=== PATIENT | male | born 1960 | race Caucasian/White ===

== ENCOUNTER 2019-03-06 11:49 | Inpatient (IN) | payer OTHER, SELFPAY ==
--- NOTE | 2019-03-06 12:25 | RAD ---
EXAM: CHEST ONE VIEW HISTORY: Chest pain COMPARISON: 11/25/2014 FINDINGS: Cardiac silhouette is magnified by projection but does appear at the upper limits normal to borderlin e enlarged. The pulmonary vasculature is within normal limits. The lungs are clear. The osseous structures are intact. There is been no significant interval change from prior exam. IMPRESSION: 1. No acute cardiopulmonary process. 2. Cardiac silhouette appears enlarged but probably magnified by projection.
[2019-03-06] MEDS ORDERED: Diltiazem 125 MG/25 ML ONE (12:29)
[2019-03-06 12:42] LABS: #Basophils 0.1 thou/uL (0.0-0.2); #Eosinphils 0.1 thou/uL (0.0-0.7); #Lymphocytes 1.6 thou/uL (1.20-3.40); #Monocytes 0.6 thou/uL (0.11-0.59); #Neutrophils 5.8 thou/uL (1.40-6.50); %Basophils 0.9 % (0.0-1.0); %Eosinophils 0.8 % (0.0-10.0); %Lymphocytes 19.3 % (21.0-51.0); %Monocytes 7.5 % (0.0-10.0); %Neutrophils 71.5 % (42.0-75.0); Hemoglobin 14.9 g/dL (14.0-18.0); Mean Corpuscular HGB CONC 32.8 g/dL (32.0-36.0); Mean Corpuscular Hemoglobin 33.1 pg (27.0-31.0); Mean Platelet Volume 8.9 fL (7.4-10.4); Platelet Count 238 thou/uL (130-400); RBC Distribution Width 11.9 % (11.5-14.5); White Blood Cell (WBC) Count 8.1 thou/uL (4.8-10.8)
[2019-03-06 13:04] LABS: ALT (SGPT) 134 U/L (8-55); AST (SGOT) 109 U/L (5-34); Albumin 3.8 g/dL (3.5-5.0); Alkaline Phosphatase 125 U/L (40-110); Anion Gap 14 mmol/L (10-20); BUN (Urea Nitrogen) 25 mg/dL (8.4-25.7); Bilirubin, Total 1.2 mg/dL (0.2-1.2); CK (CPK) 111 U/L (30-200); Calc. Creatinine Clearance 0 mL/min (70-130); Carbon Dioxide 21 mmol/L (22-29); Chloride 105 mmol/L (98-107); Estimated GFR-MDRD 53; Globulin 2.6 g/dL (2.4-3.5); Glucose 113 mg/dL (70-105); Lipase 20 U/L (8-78); Magnesium 1.9 mg/dL (1.6-2.6); Potassium 4.2 mmol/L (3.5-5.1); Protein, Total 6.4 g/dL (6.0-8.3); Sodium 136 mmol/L (136-145)
[2019-03-06] MEDS ORDERED: Ondansetron ODT 4 MG TAB SL PRN (15:17)
[2019-03-06] MEDS ORDERED: Acetaminophen 325 MG TAB PO PRN (15:17)
[2019-03-06] MEDS ORDERED: Ondansetron PF 4 MG/2 ML Vial IVP PRN (15:17)
[2019-03-06] MEDS: Apixaban 5 MG TAB PO SCH (20:05)
--- NOTE | 2019-03-06 20:33 | HP ---
CHIEF COMPLAINT: Atrial fibrillation. HISTORY OF PRESENT ILLNESS: This patient is a 58-year-old male, who presented to the emergency department. The patient is followed by Dr. Santana Taveras. The patient was presenting there with some issues with his lower extremity varicose veins which are fairly severe. He had some inflammation and swelling of a right medial thigh of varicosity and was started on some Eliquis about 2 weeks ago. He went to follow up with Dr. Taveras at which time he was found to be in atrial fibrillation. He was already on Eliquis, so atenolol was started for better rate control. He followed up and continued to have some tachycardia, but was better, try to increase his atenolol to 75 mg a day. On followup today, the patient is feeling fatigued and short of breath and presented to the emergency department. He does report some orthopnea as well and generalized fatigue. Denies chest pain, significant weight gain or weight loss. He does have orthopnea. REVIEW OF SYSTEMS: All other systems reviewed. All pertinent positives and negatives noted in the history of present illness. PAST MEDICAL HISTORY: Notable for hypertension, hypothyroidism, GERD, anxiety. PAST SURGICAL HISTORY: Had a ligation injection of varicose veins, history of atrial fibrillation flutter and ventricular tachycardia ablation in 2003. FAMILY HISTORY: Mother had lung cancer. Father of his mesothelioma. Has a sister, who was diagnosed with atrial fibrillation one month ago. SOCIAL HISTORY: The patient is a nonsmoker, nondrug user. He drinks about three beers or Kailyn daily. He has had none since Saturday. ALLERGIES: NONE. CURRENT MEDICATIONS: 1. Atenolol 75 mg p.o. b.i.d. 2. Levothyroxine 100 mcg p.o. daily. 3. Xanax 0.5 mg b.i.d. p.r.n. 4. Eliquis 5 mg b.i.d. 5. Pantoprazole 40 mg daily p.r.n. PHYSICAL EXAMINATION: VITAL SIGNS: Temperature is 97.0, pulse 95, respirations 16, O2 saturation 97% on room air, BP is 126/98. GENERAL APPEARANCE: Age-appropriate male, in no distress. He is awake, alert, oriented, pleasant, cooperative. HEENT: PERRL. No OP lesions. NECK: Supple and symmetric without lymphadenopathy, JVD, or carotid bruits. HEART: Irregularly irregular with no murmurs, gallops, or rubs. LUNGS: Clear to auscultation bilaterally with good chest wall expansion and air exchange. ABDOMEN: Soft, nontender, and nondistended. Positive bowel sounds. No masses. No organomegaly. EXTREMITIES: No cyanosis, clubbing, or edema. There are extensive varicosities with a very large tortuous varicosity in the right medial thigh with some darkened skin haloed around several areas consistent with resolving inflammatory changes. PSYCH: Normal affect and behavior. NEURO: Cranial nerves are intact. Cognitively intact. No focal deficits. LABORATORY DATA: White count 8.1, hemoglobin 14.9, platelets 238. Sodium was 136, potassium 4.2, chloride 105, CO2 is 21, BUN 25, creatinine is 1.38, glucose 113, calcium 9.0, magnesium 1.9, AST is 109, ALT is 134, alkaline phosphatase 125. CK 111, troponin less than 0.01. Albumin 3.8, lipase 20. TSH is 0.1997. Chest x-ray shows slightly enlarged cardiac silhouette. It is unclear if this is a projection magnification. No other acute cardiopulmonary processes. EKG shows atrial fibrillation with rapid ventricular response at 124 beats per minute. IMPRESSION AND PLAN: 1. Atrial fibrillation with rapid ventricular response. This patient has some history of atrial fibrillation or flutter ablation in 2003. There was some mention of ventricular tachycardia at that time too, but it is completely unclear if that is accurate at this time. He has been on Eliquis since early in the onset of the atrial fibrillation. He has been on oral beta blockers and sounds like he was not getting adequate control of his symptoms. It is completely unclear if his current fatigue is related to the atrial fibrillation, some atrial fibrillation related congestive heart failure or the beta-cristina itself. In the emergency department, the patient received one dose of IV Cardizem and had good response and his heart rate has been well controlled since he was also given one dose of p.o. Cardizem prior to transfer to the floor. We will continue with the p.o. Cardizem and hold the beta blockers for now. Calcium channel blockers may not be a good long-term option for him given the severity of his varicose veins and the potential for significant peripheral edema. We will get the echocardiogram and consult Cardiology as well. 2. Possible congestive heart failure given his orthopnea and other complaints. We will check BNP and follow up with the echo results. 3. Elevated liver enzymes, possibly related to alcohol consumption. Could also be related to passive congestion from possible heart failure. We will need to determine the BNP and reassess the numbers subsequent. 4. Acute kidney injury, unclear etiology. The patient's last renal function test that we have in our system was from five years ago at which time he was essentially normal. Cannot aggressively hydrate until we have the BNP and echo, and know that this is not related to congestive heart failure. Does not appear to have prerenal indices. 5. Hypothyroidism. Continue with his usual dose of levothyroxine. Given the atrial fibrillation, we will go and check a free T4 as well. 6. History of anxiety disorder. We will continue with Xanax p.r.n. 7. History of gastroesophageal reflux disease. Continue pantoprazole. 8. Hypertension. Continue with Cardizem. We will continue to monitor his numbers. 9. Severe varicose veins. We will need outpatient followup. Job ID: [id number]
[2019-03-06] MEDS: ALPRAZolam 0.5 MG TAB PO PRN (21:26)
[2019-03-07 04:59] LABS: ALT (SGPT) 127 U/L (8-55); AST (SGOT) 94 U/L (5-34); Albumin 3.5 g/dL (3.5-5.0); Alkaline Phosphatase 112 U/L (40-110); Anion Gap 13 mmol/L (10-20); BUN (Urea Nitrogen) 19 mg/dL (8.4-25.7); Bilirubin, Total 0.9 mg/dL (0.2-1.2); Calc. Creatinine Clearance 79 mL/min (70-130); Calcium 8.4 mg/dL (7.8-10.44); Carbon Dioxide 20 mmol/L (22-29); Chloride 106 mmol/L (98-107); Estimated GFR-MDRD 65; Globulin 2.3 g/dL (2.4-3.5); Glucose 97 mg/dL (70-105); Potassium 4.2 mmol/L (3.5-5.1); Protein, Total 5.8 g/dL (6.0-8.3); Sodium 135 mmol/L (136-145)
[2019-03-07] MEDS: Levothyroxine Sodium 100 MCG TAB PO SCH (05:54)
[2019-03-07] MEDS: Apixaban 5 MG TAB PO SCH ×2 (08:31→20:17)
[2019-03-07] MEDS: Folic Acid 1 MG TAB PO SCH (08:31)
[2019-03-07] MEDS: Thiamine 100 MG TAB PO SCH (08:31)
[2019-03-07] MEDS ORDERED: Digoxin 0.5 MG/2 ML AMP SLOW IVP SCH (10:00)
--- NOTE | 2019-03-07 13:19 | CON ---
DATE OF CONSULTATION: PRIMARY CARE DOCTOR: Santana Taveras MD. PRIMARY PRESIDENT/[employer] EXPERIENCES: Cony Haque MD. REASON FOR CARDIOLOGY CONSULTATION: New onset atrial fibrillation with RVR. HISTORY OF PRESENT ILLNESS: Mr. Puri is a very present 58-year-old male with a significant history of hypertension, hypothyroidism, and anxiety. In 2003, the patient underwent aflutter and ventricular tachycardia ablation in [place]. The patient was transferred from [place] to [place], but since then the patient has been doing relatively well. On 2 weeks ago, the patient followed up with his primary care doctor for worsening of the varicose pain in the right lower extremities. The patient was found to have a thrombosis. The patient was prescribed Eliquis 5 mg twice a day. He has been on the medicine since then. The patient followed up with his primary care doctor last Saturday, and the patient was found to have atrial fibrillation with rapid ventricular response with heart rate up to 160. Atenolol 50 mg twice a day was prescribed, however, the patient started having more shortness of breath. The patient followed up with primary care doctor last Saturday and the patient was found to continue having heart rate in the 120s, and the patient's primary care doctor recommended the patient to admit to the ER for further evaluation and treatment. Besides the worsening of shortness of breath, he never has chest pain, heaviness, tightness, dizziness, lightheadedness, or any other cardiac complaints. According to the patient, he has not followed up with any cardiologists since 2003. PAST MEDICAL HISTORY: 1. Atrial fibrillation and flutter in 2003. 2. Hypertension. 3. Hypothyroidism. 4. GERD. 5. Anxiety. PAST SURGICAL HISTORY: 1. Bilateral varicose vein ablation by Dr. Madden about 10 years ago. 2. History of atrial fibrillation, aflutter, and ventricular tachycardia ablation in 2003 in [place]. FAMILY HISTORY: The patient's mother had a medical history of lung cancer. The patient's father due to complication of lung disease. The patient has one sister who was diagnosed with atrial fibrillation about 1 month ago. SOCIAL HISTORY: He is . He has 2 children, who are living well. He is an ex-smoker. He quit in 2003, however, he continued dipping, last dip was last Saturday. He drinks at least 2-3 beers at night with luis daily. He denied any illicit drug abuse. He does not do regular exercise, however, he works at [employer] and he does a physical work outside for the maintenance. He usually walks 3-4 miles a day without any cardiac complaints. He drinks 1 cup of coffee and [address] Pepper everyday. ALLERGIES: NO KNOWN DRUG ALLERGIES. CURRENT MEDICATIONS: 1. Xanax 0.5 mg twice a day as needed. 2. Levothyroxine 100 mcg once a day. 3. Protonix 40 mg once a day. 4. Atenolol 50 mg twice a day. 5. Eliquis 5 mg twice a day. REVIEW OF SYSTEMS: A 12-point review of systems negative unless otherwise mentioned in the HPI. PHYSICAL EXAMINATION: VITAL SIGNS: Blood pressure 117/66, temperature 97.1, pulse is 110 to 120s, respiratory rate 16, O2 saturation 95% with room air. GENERAL: The patient is alert and oriented x4, not in acute distress. HEAD: Normocephalic, atraumatic. EYES: Extraocular muscle movement intact. ENT AND MOUTH: Oral and nasal mucosa moist without lesion. NECK: Supple. Normal range of motion. No JVD. RESPIRATORY: Clear to auscultate bilaterally. No wheezing, rales, or rhonchi noted. CARDIOVASCULAR: Irregularly irregular. No S3 or S4. No significant murmur, hives, or thrill noted. 2+ pulses in the bilateral upper and lower extremities. No edema in the lower extremities. The patient's carotid pulses are present without bruit or thrill. ABDOMEN: Soft, nontender. No mass to palpitate. Bowel sounds are present. SKIN: Warm and dry. No erythema, rash, or lesion noted. MUSCULOSKELETAL: The patient is able to move all extremities without difficulty. The patient denied claudication. NEUROLOGIC: The patient is alert and oriented x4, nonfocal. PSYCHIATRIC: The patient's mood is very appropriate. LABORATORY DATA: WBC 8.1, hemoglobin 14.9, hematocrit 45.4, platelets 238. Sodium 135, potassium 4.2, BUN 19, creatinine 1.15, glucose 97, calcium 8.4. AST 94 from 109 yesterday, ALT 127 from 134 yesterday, alkaline phosphatase is 112. Troponin is negative. BNP is more than 1800. Albumin is 3.5. TSH 0.1997. Magnesium is 1.9. IMAGING STUDIES: The patient's chest x-ray shows no acute cardiopulmonary process. ASSESSMENT AND PLAN: 1. New onset atrial fibrillation with rapid ventricular response. The telemetry recordings have been showing the patient continued having atrial fibrillation with heart rates in the 110 to 120s with diltiazem 30 mg 4 times a day with Eliquis 5 mg twice a day. The patient's blood pressure is little bit hypotensive. We would like to go ahead to start digoxin loading dose with 0.125 mg once a day. If patient tolerates, we would like to start a beta cristina. We recommend the patient to be on the Eliquis for at least 6 weeks and recheck EKG and possible cardioversion or further atrial fibrillation workup if the patient continued having atrial fibrillation or aflutter. At this moment, the patient is asymptomatic. The patient denies shortness of breath. 2. Congestive heart failure extubation. The patient's BNP is more than 1800. The patient had an echocardiogram done today and the result is pending at this moment. Depends on the patient's echo results, we would like to adjust the patient's medication. The patient was strongly recommended to start EtOH cessation. 3. Hyertension. Blood pressure is mildly hypotensive. At this moment, the patient is asymptomatic. We would like to continue to monitor hypothyroidism which is managed by primary care doctor and thrombosis in the right varicose vein. At this moment, the patient is asymptomatic. The patient was recommended to follow up with Dr. Haque or any other vascular doctor who can manage the patient's varicose veins in the future. 4. EtOH abuse. The patient was strongly recommended to start EtOH cessation. Thank you very much for Cardiology Service to participate in the care of this patient. We will follow along the patient's care team and make further recommendations as appropriate. Job ID: [id number]
[2019-03-07] MEDS: Digoxin 0.5 MG/2 ML AMP SLOW IVP SCH ×2 (17:30→21:52)
--- NOTE | 2019-03-07 17:31 | PDOC.HOSPP ---
- Subjective Encounter Date: 03/07/19 Encounter Time: 17:25 Subjective: f/u for A-fib RVR tx with IV Cardizem with rate improvement. Hx of previous ? A- fib/SVT with ablation in the remote past. Currently no dyspnea. - Objective Vital Signs & Weight: Vital Signs (12 hours) Temp Pulse Resp BP Pulse Ox 03/07/19 15:14 97.7 F 91 16 128/81 96 03/07/19 11:37 97.2 F L 89 18 133/101 H 95 03/07/19 10:14 108 H 03/07/19 07:11 97.7 F 89 18 140/102 H 95 Weight Admit Weight 180 lb Weight 178 lb 6.4 oz I&O: 03/06/19 03/07/19 03/08/19 06:59 06:59 06:59 Intake Total 940 2 Output Total 1325 300 Balance -385 -298 Result Diagrams: 03/06/19 12:29 03/07/19 04:21 Additional Labs: Laboratory Tests 03/06/19 03/06/19 03/06/19 12:29 12:29 12:29 MCV 101.0 H BUN 25 Creatinine 1.38 H Magnesium 1.9 AST 109 H ALT 134 H Alkaline Phosphatase 125 H B-Natriuretic Peptide TSH 3rd Generation 0.1997 L 03/06/19 03/07/19 17:11 04:21 MCV BUN Creatinine Magnesium AST 94 H ALT 127 H Alkaline Phosphatase 112 H B-Natriuretic Peptide 1898.5 H TSH 3rd Generation Radiology Reviewed by me: Yes (Echo - EF 20-25%, mod-severe TR, mod MR) EKG Reviewed by me: Yes (Tele - A-fib in 80's) Hospitalist ROS - Medication Medications: Active Medications Generic Name Dose Route Start Last Admin Trade Name Freq PRN Reason Stop Dose Admin Alprazolam 0.5 mg 03/06/19 16:49 03/06/19 21:26 Xanax PO 0.5 mg BID PRN Administration Anxiety Apixaban 5 mg 03/06/19 21:00 03/07/19 08:31 Eliquis PO 5 mg BID JAZMYN Administration Diltiazem HCl 30 mg 03/06/19 17:00 03/07/19 12:01 Cardizem PO 30 mg ACHS JAZMYN Administration Folic Acid 1 mg 03/07/19 09:00 03/07/19 08:31 Folvite PO 1 mg DAILY JAZMYN Administration Levothyroxine Sodium 100 mcg 03/07/19 06:00 03/07/19 05:54 Synthroid PO 100 mcg 0600 JAZMYN Administration Pantoprazole Sodium 40 mg 03/07/19 09:00 03/07/19 08:31 Protonix PO 40 mg DAILY JAZMYN Administration Thiamine HCl 100 mg 03/07/19 09:00 03/07/19 08:31 Thiamine PO 100 mg DAILY JAZMYN Administration - Exam General Appearance: NAD, awake alert Eye: PERRL, anicteric sclera ENT: normocephalic atraumatic, no oropharyngeal lesions Neck: supple, symmetric, no JVD, no thyromegaly Heart: no gallops, no rubs, normal peripheral pulses, irregular Respiratory: CTAB, no wheezes, no rales, no ronchi, normal chest expansion Gastrointestinal: soft, non-tender, non-distended, normal bowel sounds, no palpable masses Extremities: no cyanosis, 1+ LE edema Skin: normal turgor Neurological: cranial nerve grossly intact, no new deficit Musculoskeletal: normal tone, normal strength Psychiatric: normal affect, A&O x 3 Hosp A/P (1) Atrial fibrillation with RVR Code(s): I48.91 - UNSPECIFIED ATRIAL FIBRILLATION Status: Acute Plan: Rate-controlled currently, continue Eliquis, consider ablation option, continue Diltiazem/Digoxin (2) Acute on chronic systolic (congestive) heart failure Code(s): I50.23 - ACUTE ON CHRONIC SYSTOLIC (CONGESTIVE) HEART FAILURE Status : Acute Plan: EF 20-25%, Cardiology consulted, may need heart catheterization to r/o underlying ischemia (3) Acute kidney injury superimposed on CKD Code(s): N17.9 - ACUTE KIDNEY FAILURE, UNSPECIFIED; N18.9 - CHRONIC KIDNEY DISEASE, UNSPECIFIED Status: Acute Plan: Improved, likely due to #1, avoid nephrotoxic meds and limit contrast (4) Hypothyroid Code(s): E03.9 - HYPOTHYROIDISM, UNSPECIFIED Status: Chronic Plan: Check Free T4 in am (5) Transaminitis Code(s): R74.0 - NONSPEC ELEV OF LEVELS OF TRANSAMNS & LACTIC ACID DEHYDRGNSE Status: Acute Plan: Likely due to #1, serial LFT trend (6) Anxiety Code(s): F41.9 - ANXIETY DISORDER, UNSPECIFIED Status: Chronic - Plan plan discussed w/ family, executive secretary social welfare, out of bed/ambulate, DVT proph w/SCDs Stable currently Continue Diltiazem Continue Digoxin Continue Eliquis Cardiology consult appreciated AM lab: CMP, FT4, B12/Folate
[2019-03-07] MEDS ORDERED: Carvedilol 3.125 MG TAB PO SCH (19:00)
[2019-03-07] MEDS: ALPRAZolam 0.5 MG TAB PO PRN (21:52)
--- NOTE | 2019-03-07 22:40 | CON ---
DATE OF CONSULTATION: 03/07/2019 INDICATION FOR CONSULTATION: A 58-year-old gentleman with a history of recent onset atrial fibrillation within the last 2 weeks possibly. He was seen in the past back in 2002 and 2004 for ablation of atrial fibrillation in [place]. He then was seen again several years later by Cardiology and had some type of stress test and possible echocardiogram and this was I believe over at [facility] at least by one of those physicians and has not returned for followup since that time. He has been unaware that he has atrial fibrillation. He continues to remain very active physically and has not had any other significant complaints. Even when he saw his physician, he saw him due to a large varicose vein that had been causing him some issues, but at that time he was actually asymptomatic when he was noted to be in atrial fibrillation with rapid ventricular response. He had an echocardiogram performed in 2003, which showed a left atrial dimension of 3.0, and ejection fraction at that time was 55% to 60%. When he came in today, the echocardiogram was again repeated. An echocardiogram today shows evidence of severe decrease in left ventricular systolic function. He actually underwent the ablation by Dr. Suarez, I believe due to a wide -complex tachycardia at that time apparently with atrial fibrillation. Also, he had a stress echocardiogram, which showed no evidence of ischemia at that time. According to the old records, he presented to the emergency room with a wide-complex tachycardia in 2003 and was seen at that time by Dr. Suarez. While he was in the emergency room, he did have a somewhat atypical pattern for the wide-complex tachycardia. He had a rate of 262 beats per minute. He was started on IV procainamide at that time. He continued to have wide-complex tachycardia. He then ultimately converted to a sinus rhythm. In retrospect, it was felt to be in atrial flutter with 1:1 conduction with a left-sided accessory pathway and he was then transferred to [place] where he underwent ablation of the atrial flutter, which most likely was a left-sided pathway and he underwent the ablation there. There was no mention of atrial fibrillation at that time. At this time, it appears that he has now developed atrial fibrillation. When he was seen for the superficial thrombosis of large varicose vein he was noted by the primary care physician to have a rapid and irregular heart rate. He has remained asymptomatic. He denied any chest pain or shortness of breath associated with that and has been still remaining very active. He had been placed on Eliquis 2 weeks ago due to the superficial thrombosis and remains on that medication. PAST MEDICAL HISTORY: Significant for greater saphenous vein ablation via Dr. Madden. He has also had removal of varicose veins. He also has a history of hypertension and gastroesophageal reflux disease. Ablation of atrial flutter. FAMILY HISTORY: Please refer to the notes already dictated by my nurse practitioner for the family history, social history, allergies and review of medications. REVIEW OF SYSTEMS: A 12-point review of systems unremarkable except what is noted in the history of present illness. PHYSICAL EXAMINATION: GENERAL: Reveals a well-developed, well-nourished gentleman, who is in no acute distress. He is very pleasant. He is alert. He is oriented. VITAL SIGNS: Blood pressure 128/81. He is afebrile. Heart rate is 91 and shows an irregular rhythm. The rate is under much better control at this time with the heart rates in the 80s to 100, O2 saturation 96%, respiratory rate 16. HEENT: Shows the head to be normocephalic and atraumatic. NECK: Carotid pulses are present. There were no bruits. CHEST: Actually clear to auscultation without rales, rhonchi, or wheezing. CARDIOVASCULAR: Reveals an irregularly regular rhythm. I do not hear any significant murmurs, heaves, thrills, bruits, or rubs. ABDOMEN: Soft, flat, and nontender. Positive bowel sounds are present. There is no organomegaly or masses noted. Femoral pulses are present. EXTREMITIES: No clubbing or cyanosis. He has a large thrombosed superficial varicose vein on the right medial thigh extending down to below the knee. He also has evidence of discoloration from previous varicose veins also in the lower extremities, more so on the right than the left. NEUROLOGIC: He is fully intact. There are no gross focal motor deficits noted. IMAGING: His echocardiogram showed an ejection fraction of 20% to 25%. The left atrium was only mildly dilated. He had moderate mitral valve regurgitation, otherwise relatively unremarkable echocardiogram. The left ventricular size appeared to be normal. LABORATORY DATA: Shows a WBC of 8.1, hemoglobin was 14.9, platelet count was 238,000. His sodium was 135, BUN was 19 with a creatinine of 1.15. Liver function was slightly abnormal with AST of 94, ALT was 127, alkaline phosphatase was 112. His BNP was elevated at 1898, which may be due to his tachycardia and possibly some diastolic dysfunction, which could not be determined with the patient in atrial fibrillation. His TSH was 0.1997. His chest x-ray, I believe is also unremarkable. There were no acute new findings noted. IMPRESSION: 1. Atrial fibrillation with rapid ventricular response. This may be the etiology of the cardiomyopathy, which is a new finding. Previously he had a normal ejection fraction. He has remained asymptomatic. We will certainly control the heart rate. Since he is on Eliquis for about 2 weeks, we will consider starting him on medication for medical cardioversion of the atrial fibrillation. If he does not convert over the weekend, then I would suggest possibly he have a transesophageal echocardiogram on Saturday and then undergo electrocardioversion of the atrial fibrillation. We will discuss with him whether or not he can financially afford some of the medications that will hopefully be antiarrhythmic medications for this gentleman. He may otherwise need to undergo ablation of the atrial fibrillation. 2. History of superficial thrombosis of varicose veins. This is relatively stable, somewhat tender, but would agree with the present management. Should he continue to have problems in the future, he could undergo a stab phlebectomy of the large thrombosed varicose veins. Also please note that he has increased alcohol use. He will need to curtail this, especially in view of his atrial fibrillation. This may be some of the etiology of the atrial fibrillation. He did not have any evidence of ischemia and at some point time will need to undergo stress testing also to rule out evidence of underlying ischemia. He has not had one done for many years. 3. History of hypertension, which is under good control at this time. He has been placed on diltiazem and we can continue this medication at this time. We will certainly consider adding other medications to convert him from his atrial fibrillation. 4.He also has a history of hypothyroidism and is on medication. We will leave this up to the discretion of the primary care physician's. He did have some evidence of acute renal insufficiency, which most likely is associated with a decrease in his left ventricular systolic function and this is actually improved since being in the hospital. On admission, his creatinine is 1.38, is now back to normal at 1.15. Job ID: [id number] [facility]
[2019-03-08 05:45] LABS: ALT (SGPT) 110 U/L (8-55); AST (SGOT) 68 U/L (5-34); Albumin 3.4 g/dL (3.5-5.0); Alkaline Phosphatase 101 U/L (40-110); Anion Gap 12 mmol/L (10-20); BUN (Urea Nitrogen) 15 mg/dL (8.4-25.7); Bilirubin, Total 0.8 mg/dL (0.2-1.2); Calc. Creatinine Clearance 84 mL/min (70-130); Calcium 8.5 mg/dL (7.8-10.44); Carbon Dioxide 23 mmol/L (22-29); Chloride 107 mmol/L (98-107); Estimated GFR-MDRD 72; Globulin 2.3 g/dL (2.4-3.5); Glucose 99 mg/dL (70-105); Potassium 3.8 mmol/L (3.5-5.1); Protein, Total 5.7 g/dL (6.0-8.3); Sodium 138 mmol/L (136-145)
[2019-03-08] MEDS: Levothyroxine Sodium 100 MCG TAB PO SCH (05:50)
[2019-03-08 05:59] LABS: Free T4 (Free Thyroxine) 1.15 ng/dL (0.70-1.48)
[2019-03-08] MEDS: Carvedilol 3.125 MG TAB PO SCH ×2 (07:25→16:33)
[2019-03-08] MEDS: Thiamine 100 MG TAB PO SCH (08:11)
[2019-03-08] MEDS: Apixaban 5 MG TAB PO SCH ×2 (08:11→20:20)
[2019-03-08] MEDS: Folic Acid 1 MG TAB PO SCH (08:11)
--- NOTE | 2019-03-08 08:56 | PDOC.CPN ---
- Subjective Date: 03/08/19 Time: 09:00 Interval history: The pt seen and examined. No overnight events. No cardiac complaints. - Objective Allergies/Adverse Reactions: Allergies Allergy/AdvReac Type Severity Reaction Status Date / Time No Known Allergies Allergy Verified 03/06/19 16:09 Visit Medications: Current Medications Alprazolam (Xanax) 0.5 mg PO BID PRN PRN Reason: Anxiety Last Admin: 03/07/19 21:52 Dose: 0.5 mg Apixaban (Eliquis) 5 mg PO BID [facility] Last Admin: 03/08/19 08:11 Dose: 5 mg Carvedilol (Coreg) 3.125 mg PO BID-WM [facility] Last Admin: 03/08/19 07:25 Dose: 3.125 mg Digoxin (Lanoxin) 0.125 mg PO DAILY [facility] Last Admin: 03/08/19 08:11 Dose: 0.125 mg Diltiazem HCl (Cardizem) 30 mg PO ACHS [facility] Last Admin: 03/08/19 07:25 Dose: 30 mg Folic Acid (Folvite) 1 mg PO DAILY [facility] Last Admin: 03/08/19 08:11 Dose: 1 mg Levothyroxine Sodium (Synthroid) 100 mcg PO 0600 [facility] Last Admin: 03/08/19 05:50 Dose: 100 mcg Pantoprazole Sodium (Protonix) 40 mg PO DAILY [facility] Last Admin: 03/08/19 08:11 Dose: 40 mg Sodium Chloride (Flush - Normal Saline) 10 ml IVF Q12HR [facility] Last Admin: 03/08/19 08:12 Dose: 10 ml Sodium Chloride (Flush - Normal Saline) 10 ml IVF PRN PRN PRN Reason: Saline Flush Thiamine HCl (Thiamine) 100 mg PO DAILY [facility] Last Admin: 03/08/19 08:11 Dose: 100 mg Vital Signs & Weight: Vital Signs Temp Pulse Resp BP Pulse Ox 03/08/19 07:40 97.3 F L 97 20 135/93 H 95 03/08/19 04:00 97.6 F 83 15 125/95 H 94 L 03/07/19 23:32 98.0 F 69 16 126/81 94 L 03/07/19 21:52 78 Admit Weight 180 lb Weight 174 lb 8 oz - Physical Exam General: alert & oriented x3 HEENT: mucus membranes moist Neck: supple neck Cardiac: irregularly regular Lungs: clear to auscultation Extremities: no edema Musculoskeletal: normal range of motion - Labs Result Diagrams: 03/06/19 12:29 03/08/19 04:45 Troponin/CKMB Troponin I Less than 0.010 ng/mL (< 0.028) 03/06/19 12:29 - Telemetry Supraventricular conduction: atrial fibrillation - Assessment/Plan Assessment/Plan: 1. New onset Afib with RVR - stable with Coreg 3.125mg BID, Digoxin, and Diltiazem which may stop eventually for EF 20-25%; On Eliquis since 02/23/2019; Plan for CALE on Saturday by Dr Haque if he cont afib 2. Acute on chronic Systolic HF with EF 20-25% - 3. HTN - stable 4. Anxiety 5. Hypothyroidism 6. ETOH and tobacco abuse - the pt is willing to start ETOH and smoking cessation MAR reviewed * Plan for CALE on Saturday by Dr Haque if he does not convert to NSR. * The coupon of Eliquis is given to the pt today Pt. seen and eval. by me. I agree with the A/P by the PHOTOGRAPHER FINISH. He remains in Afib. but the rate is under good control. I will add Flecaininde and if he does not convert then plan for CALE/Cardioversion. It is likely that the decr. EF is due to the tachycardia assoc. with the Afib. The EF should improve if this is the case. He did not have any EKG changes that would indicate ischemia with the rapid rate.
[2019-03-08] MEDS ORDERED: Digoxin 0.125 MG TAB PO SCH (09:00)
[2019-03-08] MEDS ORDERED: Flecainide 50 MG TAB PO SCH (10:00)
--- NOTE | 2019-03-08 14:30 | PDOC.HOSPP ---
- Subjective Encounter Date: 03/08/19 Encounter Time: 14:25 Subjective: f/u for A-fib RVR and cardiomyopathy with EF 25%. Receiving Flecainide/Diltiazem /Digoxin/Coreg and Eliquis. Plan for CALE with CV in am. - Objective Vital Signs & Weight: Vital Signs (12 hours) Temp Pulse Resp BP Pulse Ox 03/08/19 11:06 97.4 F L 75 20 130/89 95 03/08/19 07:40 97.3 F L 97 20 135/93 H 95 03/08/19 04:00 97.6 F 83 15 125/95 H 94 L Weight Admit Weight 180 lb Weight 174 lb 8 oz I&O: 03/07/19 03/08/19 03/09/19 06:59 06:59 06:59 Intake Total 940 1584 Output Total 1325 0795 Balance -385 -5992 Result Diagrams: 03/06/19 12:29 03/08/19 04:45 Additional Labs: Laboratory Tests 03/06/19 03/06/19 03/06/19 12:29 12:29 12:29 MCV 101.0 H BUN 25 Creatinine 1.38 H Magnesium 1.9 AST 109 H ALT 134 H Alkaline Phosphatase 125 H B-Natriuretic Peptide Vitamin B12 Folate Free T4 Free T3 TSH 3rd Generation 0.1997 L 03/06/19 03/07/19 03/08/19 17:11 04:21 04:45 MCV BUN Creatinine Magnesium AST 94 H ALT 127 H Alkaline Phosphatase 112 H B-Natriuretic Peptide 1898.5 H Vitamin B12 Folate Free T4 1.15 Free T3 2.25 TSH 3rd Generation 03/08/19 03/08/19 03/08/19 04:45 04:45 04:45 MCV BUN Creatinine Magnesium AST 68 H ALT 110 H Alkaline Phosphatase 101 B-Natriuretic Peptide Vitamin B12 435 Folate 14.00 Free T4 Free T3 TSH 3rd Generation EKG Reviewed by me: Yes (Tele - A-fib 70's) Hospitalist ROS - Medication Medications: Active Medications Generic Name Dose Route Start Last Admin Trade Name Freq PRN Reason Stop Dose Admin Alprazolam 0.5 mg 03/06/19 16:49 03/07/19 21:52 Xanax PO 0.5 mg BID PRN Administration Anxiety Apixaban 5 mg 03/06/19 21:00 03/08/19 08:11 Eliquis PO 5 mg BID [facility] Administration Carvedilol 3.125 mg 03/08/19 08:00 03/08/19 07:25 Coreg PO 3.125 mg BID-WM [facility] Administration Diltiazem HCl 30 mg 03/06/19 17:00 03/08/19 10:53 Cardizem PO 30 mg ACHS [facility] Administration Folic Acid 1 mg 03/07/19 09:00 03/08/19 08:11 Folvite PO 1 mg DAILY [facility] Administration Levothyroxine Sodium 100 mcg 03/07/19 06:00 03/08/19 05:50 Synthroid PO 100 mcg 0600 [facility] Administration Pantoprazole Sodium 40 mg 03/07/19 09:00 03/08/19 08:11 Protonix PO 40 mg DAILY [facility] Administration Sodium Chloride 10 ml 03/08/19 09:00 03/08/19 08:12 Flush - Normal Saline IVF 10 ml Q12HR [facility] Administration Thiamine HCl 100 mg 03/07/19 09:00 03/08/19 08:11 Thiamine PO 100 mg DAILY [facility] Administration - Exam General Appearance: NAD, awake alert Eye: PERRL, anicteric sclera ENT: normocephalic atraumatic, no oropharyngeal lesions Neck: supple, symmetric, no JVD, no thyromegaly, no lymphadenopathy Heart: no gallops, no rubs, normal peripheral pulses, irregular Respiratory: CTAB, no wheezes, no rales, no ronchi, normal chest expansion Gastrointestinal: soft, non-tender, non-distended, normal bowel sounds, no palpable masses Extremities: no cyanosis, no clubbing, no edema Skin: normal turgor, no lesions Neurological: cranial nerve grossly intact, no new deficit Musculoskeletal: normal tone, normal strength Psychiatric: normal affect, A&O x 3 Hosp A/P (1) Atrial fibrillation with RVR Code(s): I48.91 - UNSPECIFIED ATRIAL FIBRILLATION Status: Acute Plan: Rate-controlled currently, plan for CALE/CV in am, continue Eliquis (2) Acute on chronic systolic (congestive) heart failure Code(s): I50.23 - ACUTE ON CHRONIC SYSTOLIC (CONGESTIVE) HEART FAILURE Status : Acute Plan: Likely due to #1, see above (3) Acute kidney injury superimposed on CKD Code(s): N17.9 - ACUTE KIDNEY FAILURE, UNSPECIFIED; N18.9 - CHRONIC KIDNEY DISEASE, UNSPECIFIED Status: Acute Plan: Improved, avoid nephrotoxic meds and limit contrast exposure (4) Hypothyroid Code(s): E03.9 - HYPOTHYROIDISM, UNSPECIFIED Status: Chronic Plan: Stable, continue Levothyroxine 100mcg daily (5) Transaminitis Code(s): R74.0 - NONSPEC ELEV OF LEVELS OF TRANSAMNS & LACTIC ACID DEHYDRGNSE Status: Acute Plan: Likely due to ETOH use and CHF with hepatic congestion (6) Anxiety Code(s): F41.9 - ANXIETY DISORDER, UNSPECIFIED Status: Chronic - Plan old records reviewed/req, plan discussed w/ family, out of bed/ambulate, DVT proph w/SCDs Stable currently Continue Diltiazem Continue Digoxin Continue Eliquis Flecainide 50mg BID Cardiology consult appreciated Plan for CALE/CV 03/09/19
[2019-03-08] MEDS ORDERED: Iopamidol-370 76% 500 ML 1 ML ONE (16:09)
[2019-03-08] MEDS: Flecainide 50 MG TAB PO SCH (20:21)
[2019-03-08] MEDS ORDERED: Acetaminophen 325 MG TAB PO PRN (21:21)
[2019-03-08] MEDS: ALPRAZolam 0.5 MG TAB PO PRN (22:26)
[2019-03-08] MEDS ORDERED: traMADol HCl 50 MG TAB PO PRN (23:37)
--- NOTE | 2019-03-08 23:41 | PDOC.EVN ---
Event Note - Event Note Event Note: patient c/o of LLQ pain for several hours with no relief with tylenol. Initial concern for constipation but this improved some after prune juice today. However , LLQ pain is not improving after BM. History of diverticulitis. CT abdomen with contrast ordered, also Senokot S, tramadol prn. Will continue to monitor.
[2019-03-09] MEDS: Levothyroxine Sodium 100 MCG TAB PO SCH (05:46)
[2019-03-09] MEDS: Folic Acid 1 MG TAB PO SCH (07:29)
[2019-03-09] MEDS: Apixaban 5 MG TAB PO SCH ×2 (07:29→20:24)
[2019-03-09] MEDS: Flecainide 50 MG TAB PO SCH (07:30)
[2019-03-09] MEDS: Senokot S 8.6-50 MG TAB PO SCH ×2 (07:30→20:24)
[2019-03-09] MEDS: Thiamine 100 MG TAB PO SCH (07:30)
[2019-03-09] MEDS: Carvedilol 3.125 MG TAB PO SCH ×2 (07:30→16:25)
--- NOTE | 2019-03-09 08:59 | CT ---
PRELIMINARY REPORT/[facility]/EMERGENCY AFTER HOURS PROCEDURE: This report was discussed with juan mayfield RN by Ethan Marie on Mar 09, 2019 02:42:00 [employer]. Addendum electronically signed by Ethan Marie on March 09, 2019 2:42:21 AM [employer] EXAM: CT Abdomen and Pelvis with Intravenous Contrast CLINICAL HISTORY: LLQ PAIN, HX. DIVERTICULITIS TECHNIQUE: Axial computed tomography images of the abdomen and pelvis with intravenous contrast. Coronal and sa gittal reformatted images are provided. CONTRAST: With; ISOVUE 370,100mL COMPARISON: None provided. FINDINGS: LUNG BASES: Small layering right pleural effusion. Right basilar atelectasis. The heart is normal siz e. No pericardial effusion. LIVER: Unremarkable. GALLBLADDER AND BILE DUCTS: Unremarkable. No calcified stone. No ductal dilation. PANCREAS: Unremarkable. SPLEEN: Unremarkable. ADRENAL GLANDS: 2.8 cm right adrenal nodule with density of 8 HU consistent with benign lipid rich ad enoma. The left adrenal gland is normal. KIDNEYS, URETERS, AND BLADDER: Arterial occlusion within the posterior branches of the left renal art joelle with associated posterior left kidney hypo-enhancement consistent with renal infarct. No renal st ones or hydronephrosis. The right kidney is within normal limits. Ureters follow a normal course. Nor mal appearance of the bladder. STOMACH AND BOWEL: Colonic diverticulosis. No evidence of acute diverticulitis. No evidence of rip l obstruction. APPENDIX: No CT evidence for appendicitis. PERITONEUM: No free fluid. No free air. LYMPH NODES: No lymphadenopathy. REPRODUCTIVE: Unremarkable as visualized. VASCULATURE: No aortic aneurysm. Atherosclerotic cardiovascular disease. BONES: No fracture or suspicious osseous abnormality. ABDOMINAL WALL AND SOFT TISSUES: Unremarkable. IMPRESSION: 1. 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 This most commonly associated with embolic phenomenon. 2. Small right pleural effusion with associated right basilar atelectasis. 3. Right benign lipid rich adrenal adenoma. Correlate for metabolic function. 4. Colonic diverticulosis without evidence of acute diverticulitis. ELECTRONICALLY SIGNED BY: Ang Marinelli M.D. Mar 09, 2019 2:38:53 AM [employer] This report is intended for review by the ordering physician only, in accordance of law. If you recei ve this report in error, please call [facility] at [phone]. FINAL REPORT EMERGENT AFTER HOURS CT ABDOMEN AND PELVIS WITH IV CONTRAST: HISTORY: Left lower quadrant abdominal pain. History of diverticulitis. COMPARISON: None. IMPRESSION: 1. Small right pleural effusion with atelectasis at the right lung base. Minimal atelectasis presen t at left lung base. 2. Right adrenal hypodense lesion measuring 2.6 cm which does demonstrate an attenuation coefficient on this exam most suggestive of an adrenal adenoma. 3. Absent enhancement involving the posterior aspect of the left kidney as well as involving the sup erior pole suggesting renal infarction. The right kidney demonstrates normal enhancement for phase o f imaging. 4. Colonic diverticulosis. 5. No CT evidence of appendicitis. 6. Loops of small bowel are normal in caliber. 7. No free fluid or free intraperitoneal gas is seen in the abdomen or pelvis. 8. Findings are in agreement with the preliminary report by [facility]. POS: OFF
[2019-03-09] MEDS ORDERED: Midazolam HCl 2 mg/2 ml Vial ONE (09:21)
[2019-03-09] MEDS ORDERED: PROPOFOL 200 MG/20 ML VIAL ONE (10:03)
[2019-03-09] MEDS ORDERED: Lidocaine 1% PF 5 ML VIAL ONE (10:03)
--- NOTE | 2019-03-09 10:25 | PDOC.CPN ---
- Subjective Date: 03/09/19 Time: 10:00 Interval history: Yest. pm after dinner he devoped left flank pain, CT was done and it appears that he embolized to the post left renal artery.He denied any cardiac complaints. - Review of Systems General: reports: fever/chills, night sweats Respiratory: reports: congestion, shortness of breath Cardiovascular: reports: chest pain, edema Gastrointestinal: reports: nausea, vomiting, diarrhea, abd pain (post back pain in the flank area on the left. This has resolved.) Musculoskeletal: reports: pain, tenderness Neurological: reports: syncope, seizure - Objective Allergies/Adverse Reactions: Allergies Allergy/AdvReac Type Severity Reaction Status Date / Time No Known Allergies Allergy Verified 03/06/19 16:09 Visit Medications: Current Medications Acetaminophen (Tylenol) 650 mg PO Q6H PRN PRN Reason: Headache/Fever or Pain Last Admin: 03/08/19 22:26 Dose: 650 mg Alprazolam (Xanax) 0.5 mg PO BID PRN PRN Reason: Anxiety Last Admin: 03/08/19 22:26 Dose: 0.5 mg Apixaban (Eliquis) 5 mg PO BID [facility] Last Admin: 03/09/19 07:29 Dose: 5 mg Carvedilol (Coreg) 3.125 mg PO BID-WM [facility] Last Admin: 03/09/19 07:30 Dose: 3.125 mg Diltiazem HCl (Cardizem) 30 mg PO ACHS [facility] Last Admin: 03/09/19 07:30 Dose: 30 mg Flecainide Acetate (Tambocor) 50 mg PO Q12HR [facility] Last Admin: 03/09/19 07:30 Dose: 50 mg Folic Acid (Folvite) 1 mg PO DAILY [facility] Last Admin: 03/09/19 07:29 Dose: 1 mg Levothyroxine Sodium (Synthroid) 100 mcg PO 0600 [facility] Last Admin: 03/09/19 05:46 Dose: 100 mcg Pantoprazole Sodium (Protonix) 40 mg PO DAILY [facility] Last Admin: 03/09/19 07:29 Dose: 40 mg Senna/Docusate Sodium (Senokot S) 1 tab PO BID [facility] Last Admin: 03/09/19 07:30 Dose: Not Given Sodium Chloride (Flush - Normal Saline) 10 ml IVF Q12HR [facility] Last Admin: 03/09/19 07:30 Dose: 10 ml Sodium Chloride (Flush - Normal Saline) 10 ml IVF PRN PRN PRN Reason: Saline Flush Thiamine HCl (Thiamine) 100 mg PO DAILY [facility] Last Admin: 03/09/19 07:30 Dose: 100 mg Tramadol HCl (Ultram) 50 mg PO Q4H PRN PRN Reason: Moderate Pain (4-6) Vital Signs & Weight: Vital Signs Temp Pulse Resp BP Pulse Ox 03/09/19 07:57 98 F 69 16 175/104 H 97 03/09/19 04:13 98.1 F 117 H 15 142/107 H 95 Admit Weight 180 lb Weight 174 lb 14.4 oz - CHADS-VASc Congestive heart failure: 1 Risk Score: 1 - Quality Measures Condition: Atrial Fibrillation/Flutter (hx or current) (unsuccessful cardioversion this AM.) CV meds: ASA: Yes - Physical Exam HEENT: normocephaly Neck: no JVD/HJR, no masses Cardiac: irregularly regular Lungs: clear to auscultation, no wheeze, rales, rhonchi, no rhonchi Neuro: grossly intact Abdomen: unremarkable (mild flank tenderness) Extremities: no cyanosis, no clubbing, no edema Musculoskeletal: normal range of motion - Labs Result Diagrams: 03/06/19 12:29 03/08/19 04:45 Troponin/CKMB Troponin I Less than 0.010 ng/mL (< 0.028) 03/06/19 12:29 - Telemetry Supraventricular conduction: atrial fibrillation - Assessment/Plan Assessment/Plan: 1. New onset Afib with RVR - stable with Coreg 3.125mg BID, Digoxin, and started on Flecainide last pm. On Eliquis since 02/23/2019; Plan for CALE / cardioversion this AM. History of atrial flutter ablation in the past and possible V-tach ablation, he is unclear about this. ( Dr. Suarez - 2004) 2. Acute on chronic Systolic HF with EF 20-25% - 3. HTN - stable 4. Anxiety 5. Hypothyroidism 6. ETOH and tobacco abuse - the pt is willing to start ETOH and smoking cessation 7. 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 MAR reviewed Cardioversion was unsuccessful after 3 attempts. I will ask for EP to consult.
--- NOTE | 2019-03-09 12:37 | PDOC.HOSPP ---
- Subjective Encounter Date: 03/09/19 Encounter Time: 12:35 Subjective: f/u for A-fib RVR on Diltiazem/Flecainide/Coreg/Eliquis s/p unsuccessful CV x 3 this am. LLQ abd pain overnight with CT imaging showing L renal infarct. - Objective Vital Signs & Weight: Vital Signs (12 hours) Temp Pulse Resp BP Pulse Ox 03/09/19 12:14 97.8 F 85 16 134/93 H 95 03/09/19 11:47 97.5 F L 78 18 138/101 H 97 03/09/19 07:57 98 F 69 16 175/104 H 97 03/09/19 04:13 98.1 F 117 H 15 142/107 H 95 Weight Admit Weight 180 lb Weight 174 lb 14.4 oz I&O: 03/08/19 03/09/19 03/10/19 06:59 06:59 06:59 Intake Total 1584 2100 Output Total 3525 1250 Balance -1941 850 Result Diagrams: 03/06/19 12:29 03/08/19 04:45 Additional Labs: Laboratory Tests 03/06/19 03/06/19 03/06/19 12:29 12:29 12:29 MCV 101.0 H BUN 25 Creatinine 1.38 H Magnesium 1.9 AST 109 H ALT 134 H Alkaline Phosphatase 125 H B-Natriuretic Peptide Vitamin B12 Folate Free T4 Free T3 TSH 3rd Generation 0.1997 L 03/06/19 03/07/19 03/08/19 17:11 04:21 04:45 MCV BUN Creatinine Magnesium AST 94 H ALT 127 H Alkaline Phosphatase 112 H B-Natriuretic Peptide 1898.5 H Vitamin B12 Folate Free T4 1.15 Free T3 2.25 TSH 3rd Generation 03/08/19 03/08/19 03/08/19 04:45 04:45 04:45 MCV BUN Creatinine Magnesium AST 68 H ALT 110 H Alkaline Phosphatase 101 B-Natriuretic Peptide Vitamin B12 435 Folate 14.00 Free T4 Free T3 TSH 3rd Generation Radiology Reviewed by me: Yes (CT abd - L post renal artery infarct/thrombus) EKG Reviewed by me: Yes (Tele - A-fib in 80's) Hospitalist ROS - Medication Medications: Active Medications Generic Name Dose Route Start Last Admin Trade Name Freq PRN Reason Stop Dose Admin Acetaminophen 650 mg 03/08/19 21:21 03/08/19 22:26 Tylenol PO 650 mg Q6H PRN Administration Headache/Fever or Pain Alprazolam 0.5 mg 03/06/19 16:49 03/08/19 22:26 Xanax PO 0.5 mg BID PRN Administration Anxiety Apixaban 5 mg 03/06/19 21:00 03/09/19 07:29 Eliquis PO 5 mg BID [facility] Administration Carvedilol 3.125 mg 03/08/19 08:00 03/09/19 07:30 Coreg PO 3.125 mg BID-WM [facility] Administration Diltiazem HCl 30 mg 03/06/19 17:00 03/09/19 11:54 Cardizem PO 30 mg ACHS [facility] Administration Folic Acid 1 mg 03/07/19 09:00 03/09/19 07:29 Folvite PO 1 mg DAILY [facility] Administration Levothyroxine Sodium 100 mcg 03/07/19 06:00 03/09/19 05:46 Synthroid PO 100 mcg 0600 [facility] Administration Pantoprazole Sodium 40 mg 03/07/19 09:00 03/09/19 07:29 Protonix PO 40 mg DAILY [facility] Administration Senna/Docusate Sodium 1 tab 03/09/19 09:00 03/09/19 07:30 Senokot S PO Not Given BID [facility] Sodium Chloride 10 ml 03/08/19 09:00 03/09/19 07:30 Flush - Normal Saline IVF 10 ml Q12HR [facility] Administration Thiamine HCl 100 mg 03/07/19 09:00 03/09/19 07:30 Thiamine PO 100 mg DAILY [facility] Administration - Exam General Appearance: NAD, awake alert Eye: PERRL, anicteric sclera ENT: normocephalic atraumatic, no oropharyngeal lesions Neck: supple, symmetric, no JVD, no thyromegaly Heart: no murmur, no gallops, no rubs, normal peripheral pulses, irregular Respiratory: CTAB, no wheezes, no rales, no ronchi, normal chest expansion Gastrointestinal: soft, non-tender, non-distended, normal bowel sounds, no palpable masses Extremities: no cyanosis, no clubbing Skin: normal turgor, no lesions Neurological: cranial nerve grossly intact, no new deficit Musculoskeletal: normal tone, normal strength Psychiatric: normal affect, A&O x 3 Hosp A/P (1) Atrial fibrillation with RVR Code(s): I48.91 - UNSPECIFIED ATRIAL FIBRILLATION Status: Acute Plan: Unsuccessful CV x 3, EP consult, continue rate-control strategy, Eliquis 5mg BID (2) Renal infarct Code(s): N28.0 - ISCHEMIA AND INFARCTION OF KIDNEY Status: Acute Plan: L post renal infarct, continue Eliquis, Urology consulted, pain control (3) Cardiomyopathy Code(s): I42.9 - CARDIOMYOPATHY, UNSPECIFIED Status: Acute Plan: EF 25%, continue med mgmt, likely due to A-fib (4) Acute kidney injury superimposed on CKD Code(s): N17.9 - ACUTE KIDNEY FAILURE, UNSPECIFIED; N18.9 - CHRONIC KIDNEY DISEASE, UNSPECIFIED Status: Acute Plan: Resolved, serial creatinine (5) Hypothyroid Code(s): E03.9 - HYPOTHYROIDISM, UNSPECIFIED Status: Chronic (6) Transaminitis Code(s): R74.0 - NONSPEC ELEV OF LEVELS OF TRANSAMNS & LACTIC ACID DEHYDRGNSE Status: Acute (7) Anxiety Code(s): F41.9 - ANXIETY DISORDER, UNSPECIFIED Status: Chronic - Plan old records reviewed/req, plan discussed w/ family, social media marketing analyst, out of bed/ ambulate, DVT proph w/SCDs Stable currently Continue Diltiazem Continue Coreg Continue Eliquis Flecainide 50mg BID Cardiology consult appreciated Urology consult pending AM lab: CMP, CBC
[2019-03-09] MEDS: ALPRAZolam 0.5 MG TAB PO PRN (20:24)
--- NOTE | 2019-03-09 23:26 | CON ---
DATE OF CONSULTATION: 03/09/2019 CONSULTING PHYSICIAN: Cony Haque MD REASON FOR CONSULTATION: Renal embolism with infarct. HISTORY OF PRESENT ILLNESS: Mr. Puri is a 58-year-old white male, who initially presented to the emergency department with history of flank pain along with tachycardia and generalized malaise. He was diagnosed with atrial fibrillation previously sometime in 2002 or 2004, and had undergone ablations at that time. He was unaware that he had currently been back in atrial fibrillation and was quite active. He had some large varicose veins that were noted and was being worked up for atrial fibrillation again. During this time, he was found to have significant amounts of tachycardia. He still has tachycardia and atrial fibrillation along with superficial thrombosis of a large varicose vein in his legs. He began having flank pain after being admitted to the hospital for consideration for a CALE and attempts at cardioversion. The patient is already on Eliquis. The patient had a CT scan secondary to having the flank pain on March 08, which demonstrated a posterior left renal infarct with likely thrombotic occlusion of the posterior branch of the left renal artery. There was also noted to be a small right pleural effusion, right benign lipid rich adrenal adenoma, and diverticulosis. I was consulted prior to him undergoing attempts for cardioversion and CALE by Dr. Haque due to the finding of thromboembolic event to the kidney. Apparently, this had occurred approximately 8 hours before the patient had come into the hospital and had the CT scan. He currently states that his pain is improving and has significantly gotten better from when it first started. He denies any hematuria. States that he is urinating normally without any difficulty. He has no history of urinary tract infections or previous urologic surgeries or kidney stones. ALLERGIES: NONE. HOME MEDICATIONS: 1. Atenolol. 2. Levothyroxine. 3. Xanax. 4. Eliquis. 5. Protonix. PAST MEDICAL HISTORY: 1. Hypertension. 2. Hypothyroidism. 3. Gastroesophageal reflux disease. 4. Anxiety. 5. Atrial fibrillation. PAST SURGICAL HISTORY: 1. Ligation injection of varicose veins in the past. 2. Cardiac ablation in 2003. FAMILY HISTORY: Significant for lung cancer and father with mesothelioma. He has also a sister, who has atrial fibrillation. No history of or urologic diseases. SOCIAL HISTORY: The patient is a nonsmoker. He denies illicit drug use. Drinks three beers or margaritas daily. States he does not have any symptoms when not drinking. REVIEW OF SYSTEMS: A 12-point review of systems reviewed and negative other than what was commented on the HPI. Specifically, his tachycardia and flank pain which is now improving. PHYSICAL EXAMINATION: VITAL SIGNS: Temperature 98.5, pulse 99, respirations 16, blood pressure 151/105, saturation 96% on room air. GENERAL: No apparent distress, communicative and alert. Normocephalic, atraumatic. Well nourished, well developed, appears stated age. HEENT: Normocephalic, atraumatic. Pupils are symmetric and round. Sclerae are nonicteric. Extraocular movements intact. Trachea midline. Moist mucous membranes. CARDIOVASCULAR: Irregularly irregular rhythm, high but normal rate. Normal S1 and S2. Symmetric pulses. CHEST: No increased work of breathing. Clear anteriorly. Nonlabored breathing. ABDOMEN: Soft, nontender, and nondistended. Positive bowel sounds. No organomegaly. No hernias. No rebound, guarding, or peritoneal signs. : Deferred. EXTREMITIES: No clubbing, cyanosis, or edema. SKIN: Warm and dry. No rashes or lesions. Good turgor. MUSCULOSKELETAL: No joint deformities or joint erythema noted. Full range of motion. NEUROLOGIC: Cranial nerves 2 through 12 appear grossly intact. No focal or sensory motor deficits identified. PSYCHIATRIC: Alert and oriented x3. Appropriate mood and affect. LABORATORY EVALUATION: Full set of labs are in the [facility] system, which I have reviewed. Of note, the patient's white count is 8.1, hemoglobin 14.9. Creatinine is currently 1.06. CT from March 08 demonstrates the after-mentioned renal embolism as outlined in the HPI. 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 The patient likely has had a clot passed from his heart secondary to his atrial fibrillation, which fortunately has bypassed his brachiocephalic and carotid arteries and gone directly down into his kidney. While unfortunate, he does not appear to have a large defect and his creatinine seems to be stable. He has no hematuria. Given that he is more than 3 hours from when the pain started, there are no indications for tPA. Surgical intervention is generally considered an archaic procedure with extremely high risk and is generally no longer performed since the patient is no longer a candidate for tPA. I would recommend continuation of his Eliquis. He should remain on anticoagulation to avoid further thromboembolic events such as CVAs or embolus to the bowel or kidneys or other parts of his body. The patient is currently being worked up for a possible cardiac ablation again with Dr. Zendejas. From my standpoint, I think this is the best option as ultimately the prevention of further embolic events is largely going to be based off his ability to control his atrial fibrillation. There is nothing further from urologic standpoint. He does not need any surgical intervention. If the patient does have any type of acute kidney injury or kidney dysfunction, he should see a acquisition professional or follow up with Nephrology on an outpatient basis. From my standpoint, no surgical interventions are needed. There is nothing further for me to do at this time. I will sign off. Please re-consult if there are any further questions or concerns. Job ID: [id number]
[2019-03-10 04:41] LABS: ALT (SGPT) 132 U/L (8-55); AST (SGOT) 86 U/L (5-34); Albumin 3.5 g/dL (3.5-5.0); Alkaline Phosphatase 104 U/L (40-110); Anion Gap 12 mmol/L (10-20); BUN (Urea Nitrogen) 13 mg/dL (8.4-25.7); Bilirubin, Total 1.4 mg/dL (0.2-1.2); Calc. Creatinine Clearance 53 mL/min (70-130); Calcium 8.9 mg/dL (7.8-10.44); Carbon Dioxide 24 mmol/L (22-29); Chloride 100 mmol/L (98-107); Estimated GFR-MDRD 42; Globulin 2.8 g/dL (2.4-3.5); Glucose 123 mg/dL (70-105); Potassium 4.2 mmol/L (3.5-5.1); Protein, Total 6.3 g/dL (6.0-8.3); Sodium 132 mmol/L (136-145)
[2019-03-10] MEDS: Levothyroxine Sodium 100 MCG TAB PO SCH (05:20)
[2019-03-10 05:42] LABS: Band 7 % (5-11); Lymphocytes 19 % (21-51); MDiff Complete? YES; Mean Corpuscular HGB CONC 33.7 g/dL (32.0-36.0); Mean Corpuscular Hemoglobin 33.8 pg (27.0-31.0); Mean Platelet Volume 8.6 fL (7.4-10.4); Monocytes 9 % (0-10); Neutrophil 64 % (42-75); Platelet Count 223 thou/uL (130-400); RBC Distribution Width 11.7 % (11.5-14.5); Red Blood Cell (RBC) Count 5.02 mill/uL (4.70-6.10); White Blood Cell (WBC) Count 16.5 thou/uL (4.8-10.8)
[2019-03-10] MEDS: Senokot S 8.6-50 MG TAB PO SCH ×2 (08:05→20:30)
[2019-03-10] MEDS: Carvedilol 6.25 MG TAB PO SCH ×2 (08:05→16:50)
[2019-03-10] MEDS: Folic Acid 1 MG TAB PO SCH (08:05)
[2019-03-10] MEDS: Thiamine 100 MG TAB PO SCH (08:05)
[2019-03-10] MEDS: Apixaban 5 MG TAB PO SCH ×2 (08:05→20:30)
--- NOTE | 2019-03-10 09:53 | CON ---
DATE OF CONSULTATION: HISTORY OF PRESENT ILLNESS: I am seeing Mr. Puri at our [facility] as an electrophysiology is consultant. His problems are: 1. Newly found persistent atrial fibrillation. a. recurrence of atrial fibrillation after attempted cardioversion on 2019. 2. Newly found systolic congestive heart failure with severely reduced LVEF. a. CALE today demonstrates reduced LVEF and 2D echo from 03/07/2019 reveals LVEF of 20% to 25%, moderate MR, mildly enlarged left and right atrium, moderate-to- severe tricuspid regurgitation. 3. History of AVRT/ AAVC and atrial flutter ablation in sixteen years ago. 4. History of hypertension. 4. History of EtOH and tobacco abuse. 5. 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 ALLERGIES: NONE NOTED. MEDICATIONS AT HOME: 1. Alprazolam. 2. Levothyroxine. 3. Pantoprazole. 4. Atenolol. 5. Apixaban. SUBJECTIVE: Mr. Puri is here admitted on the with symptoms of rapid palpitations as well as lower extremity varicose veins, for which he was started on Eliquis 2 weeks ago. He was in atrial fibrillation at that time and received atenolol also for rate control. He is markedly fatigue and short of breath on admission and eventually got admitted with heart failure symptoms. He is now adequately rate controlled. His rhythm has been atrial fibrillation despite the cardioversion. Denies angina. No CHF like symptoms at this point. No PND or orthopnea. REVIEW OF SYSTEMS: Rest of 12-point review of systems otherwise unremarkable. PAST HISTORY: As above. The patient also has history of remote ablation for possible atrial fibrillation in [place], details not available at this time. In the past, back in 2003, his echocardiogram which showed normal LVEF. He has history of hypothyroidism, taking medications. He has history of GERD and anxiety. SURGICAL HISTORY: Significant for ligation and injection in the varicose veins, history of atrial fibrillation/flutter and ventricular tachycardia ablation in 2003 as well. FAMILY HISTORY: Significant for mother dying of lung cancer. Father of mesothelioma. Sister diagnosed with atrial fibrillation a month ago. SOCIAL HISTORY: The patient is a nonsmoker and denies drug use. Has moderate alcohol intake. OBJECTIVE DATA: VITAL SIGNS: Blood pressure is 175/104, heart rate 69, respirations 16, and temperature 98.0 Fahrenheit. GENERAL: This is an alert and oriented man, in no apparent distress. NECK: Supple. Jugular veins not distended. CHEST: Coarse without crackles. HEART: Sounds are irregularly irregular. S1 and S2 are variable. No murmur or gallop. ABDOMEN: Benign. Bowel sounds positive. EXTREMITIES: Lower extremities without edema, clubbing, or cyanosis. DATABASE: EKG is reviewed. Initial EKG on 03/06 reveals atrial fibrillation with rapid rates, narrow QRS is noted, and QTc is 476 milliseconds. Subsequent EKGs revealed continued atrial fibrillation. Today, cardioversion attempted, but only a couple beats of sinus rhythm achieved. LABORATORY DATA: White cell count is 8.1, hemoglobin 14.9, platelet count is 238. Sodium 138, potassium 3.8, BUN is 15, and creatinine 1.06. TSH is 0.1997. BNP on the was 1898. ASSESSMENT AND PLAN: Mr. Puri is a 58-year-old man with history of atrial possible ventricular arrhythmias as well with ablation back in 2003. Since then, he has done fair, but now found to be in atrial fibrillation with mild symptoms only until he actually developed significant dyspnea associated with left ventricular dysfunction and congestive heart failure. He was attempted to be cardioverted by Dr. Haque. Even flecainide was administered prior to that, but despite his rhythms quickly returned to atrial fibrillation. This would likely suggest longer term atrial fibrillation to be present. I discussed the potential treatment options with him. [place] right now is medical therapy for his systolic congestive heart failure carvedilol over diltiazem would be the appropriate regimen for him. Also ACEI or Entresto is a consideration for him. Also need to be anticoagulated, so anticoagulation to be continued especially since embolic event. We will obtain further records regarding his ablation procedures back in 2003. Repeat ablation is a potential possibility in the future ideally after some improvement of his LV systolic function. I would like to see him back in the office in 4 to 6 weeks for further discussion of these plans. Job ID: [id number] [facility]
--- NOTE | 2019-03-10 14:20 | PDOC.CPN ---
- Subjective Date: 03/10/19 Time: 14:25 Interval history: The pt seen and examined. No overnight events. No cardiac complaints. - Objective Allergies/Adverse Reactions: Allergies Allergy/AdvReac Type Severity Reaction Status Date / Time No Known Allergies Allergy Verified 03/06/19 16:09 Visit Medications: Current Medications Acetaminophen (Tylenol) 650 mg PO Q6H PRN PRN Reason: Headache/Fever or Pain Last Admin: 03/08/19 22:26 Dose: 650 mg Alprazolam (Xanax) 0.5 mg PO BID PRN PRN Reason: Anxiety Last Admin: 03/09/19 20:24 Dose: 0.5 mg Apixaban (Eliquis) 5 mg PO BID [facility] Last Admin: 03/10/19 08:05 Dose: 5 mg Carvedilol (Coreg) 6.25 mg PO BID-WM [facility] Last Admin: 03/10/19 08:05 Dose: 6.25 mg Diltiazem HCl (Cardizem) 30 mg PO ACHS [facility] Last Admin: 03/10/19 11:07 Dose: 30 mg Folic Acid (Folvite) 1 mg PO DAILY [facility] Last Admin: 03/10/19 08:05 Dose: 1 mg Levothyroxine Sodium (Synthroid) 100 mcg PO 0600 [facility] Last Admin: 03/10/19 05:20 Dose: 100 mcg Pantoprazole Sodium (Protonix) 40 mg PO DAILY [facility] Last Admin: 03/10/19 08:05 Dose: 40 mg Senna/Docusate Sodium (Senokot S) 1 tab PO BID [facility] Last Admin: 03/10/19 08:05 Dose: 1 tab Sodium Chloride (Flush - Normal Saline) 10 ml IVF Q12HR [facility] Last Admin: 03/10/19 08:05 Dose: 10 ml Sodium Chloride (Flush - Normal Saline) 10 ml IVF PRN PRN PRN Reason: Saline Flush Thiamine HCl (Thiamine) 100 mg PO DAILY [facility] Last Admin: 03/10/19 08:05 Dose: 100 mg Tramadol HCl (Ultram) 50 mg PO Q4H PRN PRN Reason: Moderate Pain (4-6) Vital Signs & Weight: Vital Signs Temp Pulse Resp BP Pulse Ox 03/10/19 11:08 97.6 F 95 16 114/77 97 03/10/19 07:30 99 F 115 H 18 120/99 H 94 L 03/10/19 03:23 99.4 F 113 H 17 126/89 95 Admit Weight 180 lb Weight 174 lb 14.4 oz - Quality Measures Condition: Atrial Fibrillation/Flutter (hx or current) (unsuccessful cardioversion this AM.) CV meds: ASA: Yes - Physical Exam General: alert & oriented x3 HEENT: mucus membranes moist Neck: supple neck Cardiac: irregularly regular Lungs: clear to auscultation Neuro: cranial nerve 2-12 intact - Labs Result Diagrams: 03/10/19 03:46 03/10/19 03:46 Troponin/CKMB Troponin I Less than 0.010 ng/mL (< 0.028) 03/06/19 12:29 - Telemetry Supraventricular conduction: atrial fibrillation - Assessment/Plan Assessment/Plan: 1. New onset Afib with RVR with Hx of Aflutter RFA and possible V-tach RFA by Dr. Suarez - 2004 - S/p CALE/DCCV on 03/09/2019; cont. Afib. Increased Coreg from 3.125mg to 6.25mg BID; On diltiazem 30mg QID; On Eliquis since 2019; 2. Acute on chronic Systolic HF with EF 20-25% - stable; on BBlocker; not on LINA /ARB due to CIERRA; not on Diuretic since stable with RA 3. HTN - stable 4. Anxiety 5. Hypothyroidism 6. ETOH and tobacco abuse - the pt is willing to start ETOH and smoking cessation 7. 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 MAR reviewed * Cardioversion was done on 03/09/2019 with unsuccessful after 3 attempts. I will ask for EP to consult. Pt. seen and eval. by me. I agree with the A/P by the RECREATIONAL ASSISTANT. Chest clear. Irreg/ irreg. rate controlled.
--- NOTE | 2019-03-10 16:16 | ECHO ---
DATE OF PROCEDURE: 03/09/19 The transesophageal echocardiogram indicates 1. Severe decrease in left ventricular systolic function. Ejection fraction 25-30%. Perhaps mayb e up to 35%. 2. Left atrial dilatation 4.4 to 4.8 cm in diameter. 3. Moderate mitral valve regurgitation. 4. Mild tricuspid valve regurgitation. 5. No aortic valve regurgitation. 6. No evidence of valvular stenosis. 7. Smoke in the left atrium. 8. No specific thrombus in the left atrial appendage. Cardioversion: The patient had one attempt at 200 joules. Was successful. Patient converted to sinus rhythm for a ve ry short period of time, just for less than 15 to 20 seconds. He then converted back to atrial fibril lation. He then had two subsequent shocks at 300 joules each which was unsuccessful at converting him back to sinus rhythm. IMPRESSION: 1. Successful CALE of the patient without complications. 2. Unsuccessful cardioversion at three attempts.
--- NOTE | 2019-03-10 16:41 | PDOC.EP ---
- Subjective Date: 03/10/19 Time: 08:00 Interval History: feels fair today. No significant concerns or complaints. No cardiac/rhythm events overnight. - Objective Allergies/Adverse Reactions: Allergies Allergy/AdvReac Type Severity Reaction Status Date / Time No Known Allergies Allergy Verified 03/06/19 16:09 Current Medications Acetaminophen (Tylenol) 650 mg PO Q6H PRN PRN Reason: Headache/Fever or Pain Last Admin: 03/08/19 22:26 Dose: 650 mg Alprazolam (Xanax) 0.5 mg PO BID PRN PRN Reason: Anxiety Last Admin: 03/09/19 20:24 Dose: 0.5 mg Apixaban (Eliquis) 5 mg PO BID [facility] Last Admin: 03/10/19 08:05 Dose: 5 mg Carvedilol (Coreg) 6.25 mg PO BID[facility] Last Admin: 03/10/19 08:05 Dose: 6.25 mg Diltiazem HCl (Cardizem) 30 mg PO ACHS [facility] Last Admin: 03/10/19 11:07 Dose: 30 mg Folic Acid (Folvite) 1 mg PO DAILY [facility] Last Admin: 03/10/19 08:05 Dose: 1 mg Levothyroxine Sodium (Synthroid) 100 mcg PO 0600 [facility] Last Admin: 03/10/19 05:20 Dose: 100 mcg Pantoprazole Sodium (Protonix) 40 mg PO DAILY [facility] Last Admin: 03/10/19 08:05 Dose: 40 mg Senna/Docusate Sodium (Senokot S) 1 tab PO BID [facility] Last Admin: 03/10/19 08:05 Dose: 1 tab Sodium Chloride (Flush - Normal Saline) 10 ml IVF Q12HR [facility] Last Admin: 03/10/19 08:05 Dose: 10 ml Sodium Chloride (Flush - Normal Saline) 10 ml IVF PRN PRN PRN Reason: Saline Flush Thiamine HCl (Thiamine) 100 mg PO DAILY [facility] Last Admin: 03/10/19 08:05 Dose: 100 mg Tramadol HCl (Ultram) 50 mg PO Q4H PRN PRN Reason: Moderate Pain (4-6) Vital Signs & Weight: Vital Signs Temp Pulse Resp BP Pulse Ox 03/10/19 15:42 97.9 F 94 18 141/96 H 98 03/10/19 11:08 97.6 F 95 16 114/77 97 03/10/19 07:30 99 F 115 H 18 120/99 H 94 L Admit Weight 180 lb Weight 174 lb 14.4 oz I/O: I/O 03/09/19 03/10/19 03/11/19 06:59 06:59 06:59 Intake Total 2100 Output Total 1250 Balance 850 - Physical Exam General: alert & oriented x3, appears well, no apparent distress, speech clear, affect appropriate HEENT: mucus membranes moist, normocephaly Neck: supple neck, midline trachea, no JVD/HJR, no masses, no bruit, no lymphadenopathy, no thromegaly Cardiology: no murmur, regular rate, regular rhythm Lungs: clear to auscultation, normal breath sounds Neurology: cranial nerve 2-12 intact, grossly intact, no lateralizing findings Extremities: dry, strong pulses, warm - Labs Result Diagrams: 03/11/19 04:26 03/11/19 04:26 - Assessment/Plan Assessment/Plan: 1. Newly found persistent atrial fibrillation. a. recurrence of atrial fibrillation after attempted cardioversion (3 shocks failed on 03/09/2019) despite flecainide therapy 2. Newly found systolic congestive heart failure with severely reduced LVEF. a. CALE today demonstrates reduced LVEF and 2D echo from 03/07/2019 reveals LVEF of 20% to 25%, moderate MR, mildly enlarged left and right atrium, moderate-to- severe tricuspid regurgitation. 3. History of hypertension. 4. History of EtOH and tobacco abuse. 5. 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 s/p orthodromic AVRT utilizing left alteral accessory pathway and CTI flutter s/ p ablation by Dr Borjas in October of 2003 with brief AF and PACs seen overnight post ablation. No record of VT/ablation was found. Now persistent AF is seen. Can consider OP PVAI once recovered from acute medical issues. For now continue eliquis 5mg PO BID and rate control strategy with coreg and diltiazem. Most important right now is to manage his heart failure. Could consider transient amiodarone therapy as he recovers from this CHF admission.
[2019-03-10] MEDS: ALPRAZolam 0.5 MG TAB PO PRN (20:30)
--- NOTE | 2019-03-10 21:50 | PDOC.HOSPP ---
- Subjective Encounter Date: 03/10/19 Encounter Time: 09:00 Subjective: no overnight events. Feels well and has no complaints - Objective Vital Signs & Weight: Vital Signs (12 hours) Temp Pulse Resp BP Pulse Ox 03/10/19 15:42 97.9 F 94 18 141/96 H 98 03/10/19 11:08 97.6 F 95 16 114/77 97 Weight Admit Weight 180 lb Weight 174 lb 14.4 oz I&O: 03/09/19 03/10/19 03/11/19 06:59 06:59 06:59 Intake Total 2100 1110 Output Total 1250 1350 Balance 850 -240 Result Diagrams: 03/10/19 03:46 03/10/19 03:46 Radiology Reviewed by me: Yes EKG Reviewed by me: Yes Hospitalist ROS - Review of Systems Constitutional: denies: fever, chills, sweats, weakness, malaise, other Respiratory: denies: cough, dry, shortness of breath, hemoptysis, SOB with excertion, pleuritic pain, sputum, wheezing, other Cardiovascular: denies: chest pain, palpitations, orthopnea, paroxysmal noc. dyspnea, edema, light headedness, other Gastrointestinal: denies: nausea, vomiting, abdominal pain, diarrhea, constipation, melena, hematochezia, other Genitourinary: denies: dysuria, frequency, incontinence, hematuria, retention, other - Medication Medications: Active Medications Generic Name Dose Route Start Last Admin Trade Name Freq PRN Reason Stop Dose Admin Acetaminophen 650 mg 03/08/19 21:21 03/08/19 22:26 Tylenol PO 650 mg Q6H PRN Administration Headache/Fever or Pain Alprazolam 0.5 mg 03/06/19 16:49 03/10/19 20:30 Xanax PO 0.5 mg BID PRN Administration Anxiety Apixaban 5 mg 03/06/19 21:00 03/10/19 20:30 Eliquis PO 5 mg BID JAZMYN Administration Carvedilol 6.25 mg 03/10/19 08:00 03/10/19 16:50 Coreg PO 6.25 mg BID-WM JAZMYN Administration Diltiazem HCl 30 mg 03/06/19 17:00 03/10/19 20:30 Cardizem PO 30 mg ACHS JAZMYN Administration Folic Acid 1 mg 03/07/19 09:00 03/10/19 08:05 Folvite PO 1 mg DAILY JAZMYN Administration Levothyroxine Sodium 100 mcg 03/07/19 06:00 03/10/19 05:20 Synthroid PO 100 mcg 0600 JAZMYN Administration Pantoprazole Sodium 40 mg 03/07/19 09:00 03/10/19 08:05 Protonix PO 40 mg DAILY JAZMYN Administration Senna/Docusate Sodium 1 tab 03/09/19 09:00 03/10/19 20:30 Senokot S PO 1 tab BID JAZMYN Administration Sodium Chloride 10 ml 03/08/19 09:00 03/10/19 20:32 Flush - Normal Saline IVF 10 ml Q12HR JAZMYN Administration Thiamine HCl 100 mg 03/07/19 09:00 03/10/19 08:05 Thiamine PO 100 mg DAILY JAZMYN Administration - Exam General Appearance: NAD, awake alert Eye: PERRL, anicteric sclera ENT: normocephalic atraumatic, no oropharyngeal lesions, moist mucosa Neck: supple, symmetric, no JVD, no thyromegaly, no lymphadenopathy, no carotid bruit Heart: no gallops, no rubs, normal peripheral pulses, irregular Heart - other findings: mild bilateral pitting edema Respiratory: CTAB, no wheezes, no rales, no ronchi, normal chest expansion, no tachypnea, normal percussion Gastrointestinal: soft, non-tender, non-distended, normal bowel sounds, no palpable masses, no hepatomegaly, no splenomegaly, no bruit Neurological: cranial nerve grossly intact, normal sensation to touch, no weakness, no focal deficits, no new deficit Musculoskeletal: normal tone, normal strength, no muscle wasting Psychiatric: normal affect, normal behavior, A&O x 3 Hosp A/P - Plan 1. New onset Afib with RVR with Hx of Aflutter RFA; rate controlled at goal < 110; s/p 3 unsuccessful cardioversions 2. 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 - despite being on anticoagulation 2. Acute on chronic Systolic HF with EF 20-25%. Nearly euvolemic. diuresed. managing HF per cardiology pending possible ablation attempt 3. HTN - well controlled 4. Anxiety - continue home medications 5. Hypothyroidism - continue home medications 6. ETOH and tobacco abuse - the pt is willing to start ETOH and smoking cessation
[2019-03-11 04:44] LABS: #Basophils 0.1 thou/uL (0.0-0.2); #Eosinphils 0.1 thou/uL (0.0-0.7); #Lymphocytes 1.8 thou/uL (1.20-3.40); #Monocytes 1.4 thou/uL (0.11-0.59); %Basophils 0.4 % (0.0-1.0); %Eosinophils 0.6 % (0.0-10.0); %Lymphocytes 12.7 % (21.0-51.0); %Neutrophils 76.2 % (42.0-75.0); Hemoglobin 15.8 g/dL (14.0-18.0); Mean Corpuscular HGB CONC 33.3 g/dL (32.0-36.0); Mean Corpuscular Hemoglobin 33.9 pg (27.0-31.0); Mean Platelet Volume 8.2 fL (7.4-10.4); Platelet Count 198 thou/uL (130-400); RBC Distribution Width 11.8 % (11.5-14.5); Red Blood Cell (RBC) Count 4.66 mill/uL (4.70-6.10); White Blood Cell (WBC) Count 14.4 thou/uL (4.8-10.8)
[2019-03-11 04:55] LABS: INR-International Normal Ratio 1.4; Prothrombin Time 17.2 SEC (12.0-14.7)
[2019-03-11 04:56] LABS: Anion Gap 13 mmol/L (10-20); BUN (Urea Nitrogen) 15 mg/dL (8.4-25.7); Calc. Creatinine Clearance 60 mL/min (70-130); Calcium 8.6 mg/dL (7.8-10.44); Carbon Dioxide 22 mmol/L (22-29); Chloride 102 mmol/L (98-107); Estimated GFR-MDRD 54; Glucose 112 mg/dL (70-105); Potassium 4.1 mmol/L (3.5-5.1); Sodium 133 mmol/L (136-145)
[2019-03-11] MEDS: Levothyroxine Sodium 100 MCG TAB PO SCH (05:12)
[2019-03-11] MEDS: Senokot S 8.6-50 MG TAB PO SCH ×2 (08:17→20:09)
[2019-03-11] MEDS: Carvedilol 6.25 MG TAB PO SCH ×2 (08:17→17:02)
[2019-03-11] MEDS: Thiamine 100 MG TAB PO SCH (08:17)
[2019-03-11] MEDS: Folic Acid 1 MG TAB PO SCH (08:17)
[2019-03-11] MEDS: Apixaban 5 MG TAB PO SCH ×2 (08:17→20:08)
--- NOTE | 2019-03-11 10:40 | PDOC.EP ---
- Subjective Date: 03/11/19 Time: 10:38 Interval History: Feels well despite moderately elevated heart rates. No complaints or concerns. - Review of Systems Constitutional: denies: chills, fever, malaise, sweats, weakness, other Respiratory: denies: cough, dry, hemoptysis, pleuritic pain, shortness of breath , SOB with excertion, sputum, wheezing, other Cardiology: denies: chest pain, edema, heart racing, light headedness, passing out Gastrointestinal: denies: abdominal pain, constipation Musculoskeletal: denies: unstable gait, falls - Objective Allergies/Adverse Reactions: Allergies Allergy/AdvReac Type Severity Reaction Status Date / Time No Known Allergies Allergy Verified 03/06/19 16:09 Current Medications Acetaminophen (Tylenol) 650 mg PO Q6H PRN PRN Reason: Headache/Fever or Pain Last Admin: 03/08/19 22:26 Dose: 650 mg Alprazolam (Xanax) 0.5 mg PO BID PRN PRN Reason: Anxiety Last Admin: 03/10/19 20:30 Dose: 0.5 mg Apixaban (Eliquis) 5 mg PO BID [facility] Last Admin: 03/11/19 08:17 Dose: 5 mg Carvedilol (Coreg) 6.25 mg PO BID-WM [facility] Last Admin: 03/11/19 08:17 Dose: 6.25 mg Diltiazem HCl (Cardizem) 30 mg PO ACHS [facility] Last Admin: 03/11/19 08:17 Dose: 30 mg Folic Acid (Folvite) 1 mg PO DAILY [facility] Last Admin: 03/11/19 08:17 Dose: 1 mg Levothyroxine Sodium (Synthroid) 100 mcg PO 0600 [facility] Last Admin: 03/11/19 05:12 Dose: 100 mcg Pantoprazole Sodium (Protonix) 40 mg PO DAILY [facility] Last Admin: 03/11/19 08:17 Dose: 40 mg Senna/Docusate Sodium (Senokot S) 1 tab PO BID [facility] Last Admin: 03/11/19 08:17 Dose: 1 tab Sodium Chloride (Flush - Normal Saline) 10 ml IVF Q12HR [facility] Last Admin: 03/11/19 08:17 Dose: 10 ml Sodium Chloride (Flush - Normal Saline) 10 ml IVF PRN PRN PRN Reason: Saline Flush Thiamine HCl (Thiamine) 100 mg PO DAILY [facility] Last Admin: 03/11/19 08:17 Dose: 100 mg Tramadol HCl (Ultram) 50 mg PO Q4H PRN PRN Reason: Moderate Pain (4-6) Vital Signs & Weight: Vital Signs Temp Pulse Resp BP BP Pulse Ox 03/11/19 07:30 97.7 F 110 H 18 111/72 96 03/11/19 03:25 98.6 F 108 H 18 114/81 96 03/10/19 23:33 97.4 F L 79 18 143/73 H 94 L Admit Weight 180 lb Weight 158 lb 11.725 oz I/O: I/O 03/10/19 03/11/19 03/12/19 06:59 06:59 06:59 Intake Total 1110 Output Total 1350 Balance -240 - Quality Measures Condition: Atrial Fibrillation/Flutter (hx or current) CV meds: Eliquis: Yes - Physical Exam General: alert & oriented x3, appears well, no apparent distress, speech clear, affect appropriate HEENT: mucus membranes moist, normocephaly Neck: supple neck, midline trachea, no JVD/HJR, no masses, no bruit, no lymphadenopathy, no thromegaly Cardiology: no murmur, PMI nondisplaced, irregularly irregular, tachycardia Lungs: clear to auscultation, normal breath sounds, no wheeze, rales, rhonchi Neurology: cranial nerve 2-12 intact, grossly intact, no lateralizing findings Abdomen: unremarkable, active bowel sounds, no hepatosplenomegaly Extremities: dry, strong pulses, warm - Chadsvasc Risk factors Congestive heart failure: 1 Hypertension: 1 Vascular disease: 1 Risk Score: 3 - Labs Result Diagrams: 03/11/19 04:26 03/11/19 04:26 - EKG Interpretation EKG shows: Atrial fibrillation - Assessment/Plan Assessment/Plan: 1. Newly found persistent atrial fibrillation. a. recurrence of atrial fibrillation after attempted cardioversion (3 shocks failed on 03/09/2019) despite flecainide therapy b. OAC on Eliquis 5mg BID started ~02/22/2019 by PCM for PVD concerns prior to AF being discovered. 2. Newly found systolic congestive heart failure with severely reduced LVEF. a. CALE today demonstrates reduced LVEF and 2D echo from 03/07/2019 reveals LVEF of 20% to 25%, b. moderate MR, mildly enlarged left and right atrium, [id number] tricuspid regurgitation. 3. History of hypertension. 4. History of EtOH and tobacco abuse. 5. 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 6. Elevated liver enzymes - possible d/t congestion with CHF Reviewed external medical records: s/p orthodromic AVRT utilizing left alteral accessory pathway and CTI flutter s/p ablation by Dr Borjas in October of 2003 with brief AF and PACs seen overnight post ablation. No record of VT/ ablation was found. Now persistent AF is seen. Can consider outpatient PVAI once recovered from acute medical issues. For now continue eliquis 5mg PO BID. Most important right now is to manage his heart failure. Heart rates remains elevated at rest, 100-130. Will increase AV alex blocking meds. Consider short term amiodarone therapy if LFTs normalize.
[2019-03-11] MEDS ORDERED: Metoprolol Tartrate 5 MG/5 ML VIAL IVP PRN (12:14)
--- NOTE | 2019-03-11 13:03 | PDOC.HOSPP ---
- Subjective Encounter Date: 03/11/19 Encounter Time: 10:00 - Objective Vital Signs & Weight: Vital Signs (12 hours) Temp Pulse Resp BP BP Pulse Ox 03/11/19 11:14 98.4 F 100 18 115/70 96 03/11/19 07:30 97.7 F 110 H 18 111/72 96 03/11/19 03:25 98.6 F 108 H 18 114/81 96 Weight Admit Weight 180 lb Weight 158 lb 11.725 oz I&O: 03/10/19 03/11/19 03/12/19 06:59 06:59 06:59 Intake Total 1110 Output Total 1350 Balance -240 Result Diagrams: 03/11/19 04:26 03/11/19 04:26 Hospitalist ROS - Review of Systems Constitutional: denies: fever, chills, sweats, weakness, malaise, other Respiratory: denies: cough, dry, shortness of breath, hemoptysis, SOB with excertion, pleuritic pain, sputum, wheezing, other Cardiovascular: denies: chest pain, palpitations, orthopnea, paroxysmal noc. dyspnea, edema, light headedness, other Gastrointestinal: denies: nausea, vomiting, abdominal pain, diarrhea, constipation, melena, hematochezia, other Genitourinary: denies: dysuria, frequency, incontinence, hematuria, retention, other - Medication Medications: Active Medications Generic Name Dose Route Start Last Admin Trade Name Freq PRN Reason Stop Dose Admin Acetaminophen 650 mg 03/08/19 21:21 03/08/19 22:26 Tylenol PO 650 mg Q6H PRN Administration Headache/Fever or Pain Alprazolam 0.5 mg 03/06/19 16:49 03/10/19 20:30 Xanax PO 0.5 mg BID PRN Administration Anxiety Apixaban 5 mg 03/06/19 21:00 03/11/19 08:17 Eliquis PO 5 mg BID [facility] Administration Diltiazem HCl 30 mg 03/06/19 17:00 03/11/19 11:14 Cardizem PO 30 mg ACHS [facility] Administration Folic Acid 1 mg 03/07/19 09:00 03/11/19 08:17 Folvite PO 1 mg DAILY [facility] Administration Levothyroxine Sodium 100 mcg 03/07/19 06:00 03/11/19 05:12 Synthroid PO 100 mcg 0600 [facility] Administration Pantoprazole Sodium 40 mg 03/07/19 09:00 03/11/19 08:17 Protonix PO 40 mg DAILY [facility] Administration Senna/Docusate Sodium 1 tab 03/09/19 09:00 03/11/19 08:17 Senokot S PO 1 tab BID [facility] Administration Sodium Chloride 10 ml 03/08/19 09:00 03/11/19 08:17 Flush - Normal Saline IVF 10 ml Q12HR [facility] Administration Thiamine HCl 100 mg 03/07/19 09:00 03/11/19 08:17 Thiamine PO 100 mg DAILY [facility] Administration - Exam General Appearance: NAD, awake alert Neck: supple, symmetric, no JVD, no thyromegaly, no lymphadenopathy, no carotid bruit Heart: RRR, no murmur, no gallops, no rubs, normal peripheral pulses Respiratory: CTAB, no wheezes, no rales, no ronchi, normal chest expansion, no tachypnea, normal percussion Gastrointestinal: soft, non-tender, non-distended, normal bowel sounds, no palpable masses, no hepatomegaly, no splenomegaly, no bruit Extremities: no edema Hosp A/P - Plan 1. New onset Afib with RVR with Hx of Aflutter RFA; rate controlled at goal < 110; s/p 3 unsuccessful cardioversions; rate currently 90-100, better than this morning; repeating LFTs and will start short term amiodarone per cardiology; will dc pending better rate control since cardiology EP wants future management as outpatient 2. hypotonic hyponatremia - urine studies c/w 3. Hypothryoidism; TSH below goal so can decrease leothyroxine to 75mcg; may help with rate control as well 4. 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 - despite being on anticoagulation 5. Acute on chronic Systolic HF with EF 20-25%. euvolemic. diuresed. managing HF per cardiology pending possible ablation attempt 6. HTN - well controlled 7. Anxiety - continue home medications 8. ETOH and tobacco abuse - the pt is willing to start ETOH and smoking cessation. likely cause of macrocytosis
--- NOTE | 2019-03-11 13:23 | PDOC.CPN ---
- Subjective Date: 03/11/19 Time: 13:30 Interval history: The pt seen and examined. No overnight events. No cardiac complaints. - Objective Allergies/Adverse Reactions: Allergies Allergy/AdvReac Type Severity Reaction Status Date / Time No Known Allergies Allergy Verified 03/06/19 16:09 Visit Medications: Current Medications Acetaminophen (Tylenol) 650 mg PO Q6H PRN PRN Reason: Headache/Fever or Pain Last Admin: 03/08/19 22:26 Dose: 650 mg Alprazolam (Xanax) 0.5 mg PO BID PRN PRN Reason: Anxiety Last Admin: 03/10/19 20:30 Dose: 0.5 mg Apixaban (Eliquis) 5 mg PO BID [facility] Last Admin: 03/11/19 08:17 Dose: 5 mg Carvedilol (Coreg) 12.5 mg PO BID-[facility] Diltiazem HCl (Cardizem) 30 mg PO ACHS [facility] Last Admin: 03/11/19 11:14 Dose: 30 mg Folic Acid (Folvite) 1 mg PO DAILY [facility] Last Admin: 03/11/19 08:17 Dose: 1 mg Levothyroxine Sodium (Synthroid) 75 mcg PO 0600 [facility] Metoprolol Tartrate (Lopressor) 5 mg IVP Q6H PRN PRN Reason: Cardiac Arrythmia Pantoprazole Sodium (Protonix) 40 mg PO DAILY [facility] Last Admin: 03/11/19 08:17 Dose: 40 mg Senna/Docusate Sodium (Senokot S) 1 tab PO BID [facility] Last Admin: 03/11/19 08:17 Dose: 1 tab Sodium Chloride (Flush - Normal Saline) 10 ml IVF Q12HR [facility] Last Admin: 03/11/19 08:17 Dose: 10 ml Sodium Chloride (Flush - Normal Saline) 10 ml IVF PRN PRN PRN Reason: Saline Flush Thiamine HCl (Thiamine) 100 mg PO DAILY [facility] Last Admin: 03/11/19 08:17 Dose: 100 mg Tramadol HCl (Ultram) 50 mg PO Q4H PRN PRN Reason: Moderate Pain (4-6) Vital Signs & Weight: Vital Signs Temp Pulse Resp BP BP Pulse Ox 03/11/19 11:14 98.4 F 100 18 115/70 96 03/11/19 07:30 97.7 F 110 H 18 111/72 96 03/11/19 03:25 98.6 F 108 H 18 114/81 96 Admit Weight 180 lb Weight 158 lb 11.725 oz - Quality Measures Condition: Atrial Fibrillation/Flutter (hx or current) (unsuccessful cardioversion this AM.) CV meds: ASA: Yes - Physical Exam General: alert & oriented x3 HEENT: mucus membranes moist Neck: supple neck Cardiac: irregularly regular Lungs: clear to auscultation Neuro: cranial nerve 2-12 intact Extremities: no edema Skin: clear Musculoskeletal: normal range of motion - Labs Result Diagrams: 03/12/19 04:22 03/12/19 04:22 Troponin/CKMB Troponin I Less than 0.010 ng/mL (< 0.028) 03/06/19 12:29 - Telemetry Sinus rhythms and dysrhythmias: sinus rhythm - Assessment/Plan Assessment/Plan: 1. New onset Afib with RVR with Hx of Aflutter RFA and possible V-tach RFA by Dr. Suarez - 2004 - recurrence of atrial fibrillation after attempted CALE/ DCCV (3 shocks failed on 03/09/2019) despite flecainide therapy; off Flecainide ; Coreg 12.5mg BID and diltiazem 30mg QID; On Eliquis since 02/23/2019; Per EP, Consider short term amiodarone therapy if LFTs normalize and possible outpatient PVAI (Appriciate EP input!) 2. Acute on chronic Systolic HF with EF 20-25% - stable; on BBlocker; not on LINA /ARB due to CIERRA; not on Diuretic since stable with RA 3. HTN - stable 4. Anxiety 5. Hypothyroidism 6. ETOH and tobacco abuse - the pt is willing to start ETOH and smoking cessation 7. 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 8. New-onset Non-ischemic CMY with EF 20-25% - LifeVest is ordered prior to discharge. MAR reviewed * Cardioversion was done on 03/09/2019 with unsuccessful after 3 attempts. Pt. seen and eval. by me. i agree with the A/P by the [facility]. Stable wit Afib. rate is under better control. Coreg incresed. Will order Life-Vest with EF 20- 25%. Exp;ained purpose to pt. if VS stable could be d/c'd after shaun-Vest.
[2019-03-11 13:41] LABS: ALT (SGPT) 86 U/L (8-55); AST (SGOT) 51 U/L (5-34); Albumin 3.5 g/dL (3.5-5.0); Alkaline Phosphatase 95 U/L (40-110); Bilirubin, Direct 0.5 mg/dL (0.1-0.3); Protein, Total 6.4 g/dL (6.0-8.3)
[2019-03-11] MEDS: ALPRAZolam 0.5 MG TAB PO PRN (20:12)
[2019-03-12 04:42] LABS: #Basophils 0.1 thou/uL (0.0-0.2); #Eosinphils 0.2 thou/uL (0.0-0.7); #Lymphocytes 2.1 thou/uL (1.20-3.40); #Neutrophils 8.1 thou/uL (1.40-6.50); %Basophils 0.6 % (0.0-1.0); %Eosinophils 1.9 % (0.0-10.0); %Lymphocytes 18.5 % (21.0-51.0); %Monocytes 8.6 % (0.0-10.0); %Neutrophils 70.4 % (42.0-75.0); Hemoglobin 15.3 g/dL (14.0-18.0); Mean Corpuscular HGB CONC 32.8 g/dL (32.0-36.0); Mean Corpuscular Hemoglobin 33.6 pg (27.0-31.0); Mean Platelet Volume 8.2 fL (7.4-10.4); Platelet Count 224 thou/uL (130-400); RBC Distribution Width 11.7 % (11.5-14.5); Red Blood Cell (RBC) Count 4.55 mill/uL (4.70-6.10); White Blood Cell (WBC) Count 11.5 thou/uL (4.8-10.8)
[2019-03-12 04:59] LABS: Anion Gap 11 mmol/L (10-20); BUN (Urea Nitrogen) 16 mg/dL (8.4-25.7); Calc. Creatinine Clearance 60 mL/min (70-130); Calcium 8.9 mg/dL (7.8-10.44); Carbon Dioxide 26 mmol/L (22-29); Chloride 102 mmol/L (98-107); Estimated GFR-MDRD 54; Glucose 106 mg/dL (70-105); Magnesium 2.2 mg/dL (1.6-2.6); Potassium 4.4 mmol/L (3.5-5.1); Sodium 135 mmol/L (136-145)
[2019-03-12 05:30] VITALS: BMI 23.8
[2019-03-12] MEDS ORDERED: Levothyroxine Sodium 75 MCG TAB PO SCH (06:00)
[2019-03-12] MEDS: Carvedilol 6.25 MG TAB PO SCH (08:30)
[2019-03-12] MEDS: Senokot S 8.6-50 MG TAB PO SCH (08:30)
[2019-03-12] MEDS: Thiamine 100 MG TAB PO SCH (08:31)
[2019-03-12] MEDS: Folic Acid 1 MG TAB PO SCH (08:31)
[2019-03-12] MEDS: Apixaban 5 MG TAB PO SCH (08:31)
--- NOTE | 2019-03-12 10:26 | PDOC.CPN ---
- Subjective Date: 03/12/19 Time: 10:27 Interval history: The pt seen and examined. No overnight events. No cardiac complaints. - Objective Allergies/Adverse Reactions: Allergies Allergy/AdvReac Type Severity Reaction Status Date / Time No Known Allergies Allergy Verified 03/06/19 16:09 Visit Medications: Current Medications Acetaminophen (Tylenol) 650 mg PO Q6H PRN PRN Reason: Headache/Fever or Pain Last Admin: 03/08/19 22:26 Dose: 650 mg Alprazolam (Xanax) 0.5 mg PO BID PRN PRN Reason: Anxiety Last Admin: 03/11/19 20:12 Dose: 0.5 mg Apixaban (Eliquis) 5 mg PO BID [facility] Last Admin: 03/12/19 08:31 Dose: 5 mg Carvedilol (Coreg) 12.5 mg PO BID-WM [facility] Last Admin: 03/12/19 08:30 Dose: 12.5 mg Diltiazem HCl (Cardizem) 30 mg PO ACHS [facility] Last Admin: 03/12/19 08:30 Dose: 30 mg Folic Acid (Folvite) 1 mg PO DAILY [facility] Last Admin: 03/12/19 08:31 Dose: 1 mg Levothyroxine Sodium (Synthroid) 75 mcg PO 0600 [facility] Last Admin: 03/12/19 05:27 Dose: 75 mcg Metoprolol Tartrate (Lopressor) 5 mg IVP Q6H PRN PRN Reason: Cardiac Arrythmia Pantoprazole Sodium (Protonix) 40 mg PO DAILY [facility] Last Admin: 03/12/19 08:31 Dose: 40 mg Senna/Docusate Sodium (Senokot S) 1 tab PO BID [facility] Last Admin: 03/12/19 08:30 Dose: 1 tab Sodium Chloride (Flush - Normal Saline) 10 ml IVF Q12HR [facility] Last Admin: 03/12/19 08:32 Dose: 10 ml Sodium Chloride (Flush - Normal Saline) 10 ml IVF PRN PRN PRN Reason: Saline Flush Thiamine HCl (Thiamine) 100 mg PO DAILY [facility] Last Admin: 03/12/19 08:31 Dose: 100 mg Tramadol HCl (Ultram) 50 mg PO Q4H PRN PRN Reason: Moderate Pain (4-6) Last Admin: 03/11/19 22:26 Dose: 50 mg Vital Signs & Weight: Vital Signs Temp Pulse Resp BP BP BP Pulse Ox 03/12/19 08:30 153/76 H 03/12/19 08:22 97.6 F 99 16 153/76 H 95 03/12/19 08:00 96 03/12/19 04:00 97.4 F L 127 H 14 117/78 97 03/11/19 23:48 71 14 114/72 97 Admit Weight 180 lb Weight 171 lb 4.787 oz - Quality Measures Condition: Atrial Fibrillation/Flutter (hx or current) (unsuccessful cardioversion this AM.) CV meds: ASA: Yes - Physical Exam General: alert & oriented x3 HEENT: mucus membranes moist Cardiac: irregularly regular Lungs: clear to auscultation Abdomen: no masses - Labs Result Diagrams: 03/12/19 04:22 03/12/19 04:22 Troponin/CKMB Troponin I Less than 0.010 ng/mL (< 0.028) 03/06/19 12:29 - Telemetry Supraventricular conduction: atrial fibrillation - Assessment/Plan Assessment/Plan: 1. New onset Afib with RVR with Hx of Aflutter RFA and possible V-tach RFA by Dr. Suarez - 2004 - recurrence of atrial fibrillation after attempted CALE/ DCCV (3 shocks failed on 03/09/2019) despite flecainide therapy; off Flecainide ; Coreg 12.5mg BID and diltiazem 30mg QID; On Eliquis since 02/23/2019; Per EP, Consider short term amiodarone therapy if LFTs normalize and possible outpatient PVAI (Appriciate EP input!) 2. Acute on chronic Systolic HF with EF 20-25% - stable; on BBlocker; not on LINA /ARB due to CIERRA; not on Diuretic since stable with RA 3. HTN - stable 4. Anxiety 5. Hypothyroidism 6. ETOH and tobacco abuse - the pt is willing to start ETOH and smoking cessation 7. 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 8. New-onset Non-ischemic CMY with EF 20-25% - LifeVest is ordered prior to discharge. MAR reviewed * Cardioversion was done on 03/09/2019 with unsuccessful after 3 attempts.
[2019-03-12 12:38] VITALS: BP 109/71; TEMP 97.4
--- NOTE | 2019-03-12 17:24 | PDOC.EP ---
- Subjective Date: 03/12/19 Time: 08:00 Interval History: No new events overnight. Awaiting life vest placement. - Review of Systems Constitutional: denies: chills, fever, malaise, sweats, weakness, other Respiratory: denies: cough, dry, hemoptysis, pleuritic pain, shortness of breath , SOB with excertion, sputum, wheezing, other Cardiology: denies: chest pain, edema, heart racing, light headedness, paroxysmal noc. dyspnea, orthopnea, palpitations, passing out, pleuritic pain, pressure, swelling, other - Objective Allergies/Adverse Reactions: Allergies Allergy/AdvReac Type Severity Reaction Status Date / Time No Known Allergies Allergy Verified 03/06/19 16:09 Vital Signs & Weight: Vital Signs Temp Pulse Resp BP BP BP Pulse Ox 03/12/19 12:00 97.4 F L 75 18 109/71 03/12/19 08:30 153/76 H 03/12/19 08:22 97.6 F 99 16 153/76 H 95 03/12/19 08:00 96 Admit Weight 180 lb Weight 171 lb 4.787 oz I/O: I/O 03/11/19 03/12/19 03/13/19 06:59 06:59 06:59 Intake Total 1110 2000 600 Output Total 1350 1050 Balance -240 950 600 - Quality Measures Condition: Atrial Fibrillation/Flutter (hx or current) CV meds: Eliquis: Yes - Physical Exam General: appears well, no apparent distress Neck: supple neck Cardiology: irregularly irregular Lungs: clear to auscultation, normal breath sounds Neurology: grossly intact Abdomen: unremarkable, active bowel sounds Extremities: warm - Chadsvasc Risk factors Congestive heart failure: 1 Hypertension: 1 Stroke/TIA/thrombo-embolism: 2 Vascular disease: 1 Risk Score: 5 - Labs Result Diagrams: 03/12/19 04:22 03/12/19 04:22 - EKG Interpretation EKG Method: Telemetry (afib with improving VR control) - Assessment/Plan Assessment/Plan: 1. Recurrent atrial arrhtyannia a. Reviewed external medical records: s/p orthodromic AVRT utilizing left alteral accessory pathway and CTI flutter s/p ablation by Dr Borjas in October of 2003 with brief AF and PACs seen overnight post ablation. No record of VT/ablation was found. b Newly found persistent atrial fibrillation. - recurrence of atrial fibrillation after attempted cardioversion (3 shocks failed on 03/09/2019) despite flecainide therapy b. OAC on Eliquis 5mg BID started ~02/22/2019 by PCM for PVD concerns prior to AF being discovered. 2. Newly found systolic congestive heart failure with severely reduced LVEF. a. CALE today demonstrates reduced LVEF and 2D echo from 03/07/2019 reveals LVEF of 20% to 25%, b. moderate MR, mildly enlarged left and right atrium, [id number] tricuspid regurgitation. 3. History of hypertension. 4. History of EtOH and tobacco abuse. 5. 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 6. Elevated liver enzymes - possible d/t congestion with CHF Now persistent AF is seen, adequate VR control on BB/Dig. . Plan outpatient follow up in 1 month for PVAI once recovered from acute medical issues. For now continue eliquis 5mg PO BID. Most important right now is to manage his heart failure. Heart rates remains elevated at rest, 100-130. Will increase AV alex blocking meds. Can consider short term amiodarone therapy if LFTs normalize.
--- NOTE | 2019-03-13 11:32 | DIS ---
DATE OF ADMISSION: 03/06/2019 DATE OF DISCHARGE: 03/12/2019 HOSPITAL COURSE: Mr. Puri is a 58-year-old male with a medical history of atrial fibrillation and flutter as well as ventricular tachycardia, who presented with fatigue and shortness of breath. He was diagnosed with persistent atrial fibrillation. Cardiology was consulted and attempted to cardiovert VF3 shocks and flecainide therapy, however, the patient remained in atrial fibrillation. In addition to that, the patient was found to have heart failure with severely reduced ejection fraction of 20%, moderate mitral regurgitation, and moderate to severe tricuspid regurgitation. The patient achieved adequate ventricular rate control on beta blockers and digoxin, and symptoms improved through the hospital stay. He was discharged home hemodynamically stable with a followup appointment with Cardiology in a month. On the day of discharge, the patient was hemodynamically stable. Vitals were unremarkable. PHYSICAL EXAMINATION: GENERAL: He was in no apparent distress. Alert and oriented x3. CARDIAC: Irregularly irregular rhythm. Regular rate. He had 3/4 systolic murmurs at the apex and the peristernal areas, but no gallops. LUNGS: Clear to auscultation bilaterally. Normal breath sounds. No rales or rhonchi. ABDOMEN: Nontender, nondistended with normal bowel sounds. EXTREMITIES: There was no edema in the lower extremities or upper extremities. ASSESSMENT AND PLAN: 1. Mr. Puri is a 58-year-old male, who presented with shortness of breath and weakness due to atrial fibrillation with RVR. The patient achieved rate control after failed attempts to cardiovert both VF3 shocks and flecainide therapy. The patient was started on oral anticoagulation with followup appointments to Cardiology. Atrial fibrillation. Prior to discharge, the patient was also started on amiodarone therapy per Cardiology. 2. Heart failure with reduced ejection fraction of 20%. The patient was never diagnosed with heart failure prior to this admission. Likely result of valvular disease based on echocardiography findings, as well as episodes of poorly controlled heart rate due to atrial fibrillation. Prior to discharge, the patient was fitted with LifeVest. Job ID: [id number] [facility]
== END 2019-03-12 14:48 | disposition home or self-care (01) | DRG 308 ==
LOC: ERS 11:49 → 2SW 13:18 → OBSVTOIN 13:18 → 2NO 03-09 12:15
PROVIDERS: ADMIT Internal Medicine; ATTEND Internal Medicine
PROC: 5A2204Z Restoration of Cardiac Rhythm, Single (ICD-10-PCS; principal; 2019-03-09)
PROC: B24BZZ4 Ultrasonography of Heart with Aorta, Transesophageal (ICD-10-PCS; 2019-03-09)
DX: I48.19 Other persistent atrial fibrillation (principal); I50.23 Acute on chronic systolic (congestive) heart failure; N28.0 Ischemia and infarction of kidney; N17.9 Acute kidney failure, unspecified; I13.0 Hypertensive heart and chronic kidney disease with heart failure and stage 1 through stage 4 chronic kidney disease, or unspecified chronic kidney disease; I08.1 Rheumatic disorders of both mitral and tricuspid valves; E03.9 Hypothyroidism, unspecified; K21.9 Gastro-esophageal reflux disease without esophagitis; F41.9 Anxiety disorder, unspecified; F17.220 Nicotine dependence, chewing tobacco, uncomplicated; N18.9 Chronic kidney disease, unspecified; F10.10 Alcohol abuse, uncomplicated; I42.8 Other cardiomyopathies; R10.32 Left lower quadrant pain; Z79.01 Long term (current) use of anticoagulants; Z79.899 Other long term (current) drug therapy
CPT/HCPCS: 36415; 71045; 74177; 80048; 80053; 80076; 82436; 82550; 82607; 82746; 83690; 83735; 83880; 83930; 83935; 84300; 84439; 84443; 84481; 84484; 85007; 85025; 85027; 85610; 92960; 93005; 93306; 93312; 93798; 94760; 96374; J1160; J2001; J2250; J2704; Q9967

== ENCOUNTER 2019-06-26 06:54 | Outpatient (CLI) | payer OTHER ==
[2019-06-26 12:05] LABS: Hemoglobin 13.1 g/dL (14.0-18.0); Mean Corpuscular Hemoglobin 33.9 pg (27.0-31.0); Mean Corpuscular Volume 99.6 fL (78.0-98.0); Mean Platelet Volume 7.9 fL (7.4-10.4); Platelet Count 217 thou/uL (130-400); RBC Distribution Width 12.2 % (11.5-14.5); Red Blood Cell (RBC) Count 3.87 mill/uL (4.70-6.10); White Blood Cell (WBC) Count 5.8 thou/uL (4.8-10.8)
[2019-06-26 12:14] LABS: INR-International Normal Ratio 1.2; PTT 30.7 SEC (22.9-36.1); Prothrombin Time 15.1 sec (12.0-14.7)
[2019-06-26 12:25] LABS: Anion Gap 13 mmol/L (10-20); BUN (Urea Nitrogen) 20 mg/dL (8.4-25.7); Calc. Creatinine Clearance 0 mL/min (70-130); Calcium 9.2 mg/dL (7.8-10.44); Carbon Dioxide 24 mmol/L (22-29); Chloride 106 mmol/L (98-107); Estimated GFR-MDRD 69; Glucose 87 mg/dL (70-105); Potassium 4.4 mmol/L (3.5-5.1); Sodium 139 mmol/L (136-145)
[2019-06-27 17:08] LABS: SARS-CoV-2 MS2 Positive; SARS-CoV-2 N Gene Negative; SARS-CoV-2 S Gene Negative; SARS-CoV-2 orf1ab Negative
--- NOTE | 2019-06-28 16:36 | EKG ---
Test Reason : Blood Pressure : / mmHG Vent. Rate : 088 BPM Atrial Rate : 288 BPM P-R Int : 000 ms QRS Dur : 074 ms QT Int : 372 ms P-R-T Axes : 000 -18 024 degrees QTc Int : 450 ms Atrial fibrillation Minimal voltage criteria for LVH, may be normal variant Abnormal ECG When compared with ECG of 06-MAR-2019 12:07, Questionable change in QRS axis Confirmed by JANELLE RAMIREZ (2) on 06/28/2019 4:36:02 PM Referred By: LORENZO Confirmed By:JANELLE RAMIREZ
== END 2019-06-26 06:55 | disposition home or self-care (01) ==
LOC: LABBT 06:54
PROVIDERS: ATTEND Specialist
DX: Z01.818 Encounter for other preprocedural examination (principal); Z11.59 Encounter for screening for other viral diseases; I48.91 Unspecified atrial fibrillation
CPT/HCPCS: 80048; 85027; 85610; 85730; 87635; 93005; 93010; U0003

== ENCOUNTER 2019-06-30 08:57 | Observation (INO) | payer OTHER ==
[2019-06-30] MEDS ORDERED: Fentanyl 100 MCG/2 ML VIAL ONE (11:05)
[2019-06-30] MEDS ORDERED: SUGAMMADEX SODIUM 200 MG/2 ML VIAL ONE (11:05)
[2019-06-30] MEDS ORDERED: Heparin 10,000 UNITS/1 ML VIAL ONE ×2 (11:07→13:04)
[2019-06-30] MEDS ORDERED: Isoproterenol 0.2 MG/1 ML AMP ONE (11:29)
[2019-06-30] MEDS ORDERED: diphenhydrAMINE 50 MG/ML VIAL ONE ×2 (11:32→12:08)
[2019-06-30] MEDS ORDERED: PHENYLEPHRINE-NS 100 MCG/ML 10 ML SYRINGE ONE (11:32)
[2019-06-30] MEDS ORDERED: Dexamethasone 20 MG/5 ML VIAL ONE (11:32)
[2019-06-30] MEDS ORDERED: PROPOFOL 200 MG/20 ML VIAL ONE (11:32)
[2019-06-30] MEDS ORDERED: Ondansetron PF 4 MG/2 ML Vial ONE (11:32)
[2019-06-30] MEDS ORDERED: Rocuronium Bromide 10 MG/ML (10ML VIAL) ONE (11:32)
[2019-06-30] MEDS ORDERED: Protamine Sulfate 50 MG/5 ML VIAL ONE (13:16)
[2019-06-30] MEDS ORDERED: ALPRAZolam 0.5 MG TAB PO PRN (14:43)
--- NOTE | 2019-06-30 15:54 | OP ---
DATE OF PROCEDURE: 06/30/2019 PREOPERATIVE DIAGNOSIS: Atrial fibrillation. POSTOPERATIVE DIAGNOSIS: Atrial fibrillation. PROCEDURE IN DETAIL: The patient came to the EP lab in a postabsorptive state. Informed consent was obtained. A time-out was called. The patient was sedated by member of the anesthesia staff. Once the patient was adequately sedated, the right and left femoral regions and the right internal jugular region were prepped and draped in the usual sterile fashion. Using a modified Seldinger technique with ultrasound-guided access, access was obtained x2 in the right femoral vein, x1 in the left femoral vein, and x1 in the internal jugular vein. A 7-Slovak sheath was placed in the internal jugular, two 8-Slovak sheaths were placed in the right femoral vein, and a 10-Slovak sheath was placed in the left femoral vein. A duo-Deca catheter was placed in the right internal jugular vein with the distal 10 poles in the coronary sinus for left atrial pacing and recording. Intracardiac echo was advanced from the left femoral vein for intraprocedural guidance. Heparin bolus was given and transseptal puncture was performed x2 by exchanging the two 8-Slovak sheaths in the right femoral vein. A 3D electroanatomical map of the left atrium was created using a circular mapping catheter. A Carto STSF catheter was placed into the left atrium and a radiofrequency ablation was initiated. Radiofrequency ablation to isolate the pulmonary veins with a target wattage of 40 ledesma and watching esophageal temperatures utilizing a temperature probe. After isolation of pulmonary veins, the patient remained in atrial fibrillation. Further ablation was performed in the posterior wall of the left atrium as well as some of the roof and slightly anteriorly. The rhythm organized briefly, but then became disorganized once again. As such, a cardioversion was performed. Isoproterenol bolus did not demonstrate any extra triggers or episodes. After this, catheters were removed, sheaths were removed, and hemostasis was obtained with manual pressure. Total RF time was 36 minutes and 10 seconds. COMPLICATIONS: None acute. PROCEDURES PERFORMED: 1. Atrial fibrillation ablation. 2. Additional ablation after isolation of pulmonary veins. 3. Pacing in the left atrium. 4. Pacing in the left ventricle. FINDINGS: HV interval was 41 milliseconds. CONCLUSION: Successful radiofrequency ablation for pulmonary vein isolation for atrial fibrillation. RECOMMENDATIONS: The patient will continue with anticoagulant therapy and follow up with Dr. Zendejas by 6 weeks. He will be admitted overnight. Job ID: [id number]
[2019-06-30] MEDS: Carvedilol 25 MG TAB PO SCH (18:07)
[2019-06-30] MEDS: Sucralfate 1 GM TAB PO SCH ×2 (18:07→21:38)
[2019-06-30 19:05] VITALS: BMI 24.7
[2019-06-30] MEDS: Apixaban 5 MG TAB PO SCH (21:38)
[2019-07-01] MEDS ORDERED: Levothyroxine Sodium 125 MCG TAB PO SCH (06:00)
[2019-07-01] MEDS: Apixaban 5 MG TAB PO SCH (08:12)
[2019-07-01] MEDS: Carvedilol 25 MG TAB PO SCH (08:12)
[2019-07-01] MEDS: Sucralfate 1 GM TAB PO SCH ×2 (08:13→11:16)
[2019-07-01] MEDS ORDERED: Potassium Chloride 20 MEQ TAB PO PRN (10:53)
[2019-07-01] MEDS ORDERED: Furosemide 20 MG TAB PO PRN (10:53)
[2019-07-01 11:15] VITALS: BP 142/88; TEMP 97.5
--- NOTE | 2019-07-02 10:53 | DIS ---
DATE OF ADMISSION: 06/30/2019 DATE OF DISCHARGE: 07/01/2019 Dictated by Diana Blanca, nurse practitioner, for Dr. Karthikeyan Zendejas ADMITTING PHYSICIAN: Renetta Carter MD DISCHARGING PHYSICIAN: Karthikeyan Zendejas MD DIAGNOSIS: Persistent atrial fibrillation. PROCEDURES PERFORMED: Include three dimensional mapping, intracardiac echo, mapping, and atrial fibrillation ablation with additional ablation after isolation of the pulmonary vein. TOTAL ABLATION TIME: 36 minutes 10 seconds. COMPLICATIONS: None. RECOMMENDATIONS: Continue with anticoagulation and follow up in 6 weeks. SUBJECTIVE: Mr. Puri is a 58-year-old gentleman, known to our group previously for a left lateral accessory pathway in addition to CTI flutter that has been ablated by Dr. Borjas in 2003. Earlier this year, he was hospitalized and found to be in atrial fibrillation with RVR. He was loaded on flecainide and cardioversion was attempted but was unsuccessful. Ultimately, since he has failed class 1C antiarrhythmic medications, we recommended ablation for him as he was having symptoms of fatigue, shortness of breath, and low energy levels. This was performed yesterday by Dr. Carter as detailed above. Mr. Puri feels well. He does not have any concerns today and is eager to go home. He is not having any heart racing, palpitations, chest pain, pressure, syncope, near syncope, stroke, stroke-like symptoms, bleeding at the groin site, nausea, vomiting, food intolerance, or difficulty urinating. REVIEW OF SYSTEMS: Eight-point review of systems is negative except that listed above in the subjective. OBJECTIVE: VITAL SIGNS: Are as follows, temperature 97.5 degrees Fahrenheit, pulse 69, blood pressure 142/88, respirations 16, and oxygen 99% on room air. GENERAL: The patient is alert and oriented. Speech is clear. Affect is appropriate. He is in no apparent distress at the time of the exam. HEART: Rate is irregularly irregular with crisp S1 and S2. LUNGS: Clear to auscultation bilaterally without wheezes, crackles, or rhonchi. Bilateral groin sites are stable without evidence of bleeding, hematoma, or complication. Distal peripheral pulses are intact and strong. NEUROLOGIC: Grossly intact. Nonfocal. Gait is stable. DIAGNOSTIC STUDIES: EKG shows sinus rhythm with occasional brief PAT runs immediately postop, but have quieted over the night and into the morning. DISCHARGE INSTRUCTIONS: No lifting more than 10-15 pounds for 1 week. Light activity for one week, then resume gradually and as tolerated. Contact [facility] with any postablation concerns. Follow up in 6 weeks or sooner if symptoms dictate. Refer to [facility] postablation discharge packet that was provided to the patient. DISCHARGE MEDICATIONS: Include, 1. Protonix 40 mg daily x30 days, then he may resume his home schedule of as needed. 2. Synthroid 125 mcg daily. 3. Coreg 25 mg p.o. b.i.d. 4. Eliquis 5 mg p.o. b.i.d. 5. Xanax 0.5 mg b.i.d. p.r.n. New prescriptions provided for, 1. Carafate 1 g p.o. q.i.d. x2 weeks. 2. Furosemide 40 mg p.o. p.r.n. edema. 3. Potassium chloride 20 mEq p.o. p.r.n. to be taken with Lasix. Discontinuing diltiazem. The patient was instructed that if he has heart racing, palpitations, or if blood pressure is consistently greater than 140/90, he may resume diltiazem. He is free to contact our office with any concerns that may arise. CONDITION AT DISCHARGE: Stable. Job ID: [id number]
== END 2019-07-01 13:55 | disposition home or self-care (01) ==
LOC: CCL 08:57 → 2NO 13:47
PROVIDERS: ADMIT Specialist; ATTEND Specialist
PROC: 4A023FZ Measurement of Cardiac Rhythm, Percutaneous Approach (ICD-10-PCS; principal; 2019-07-01)
PROC: 4A0234Z Measurement of Cardiac Electrical Activity, Percutaneous Approach (ICD-10-PCS; 2019-07-01)
PROC: 02583ZZ Destruction of Conduction Mechanism, Percutaneous Approach (ICD-10-PCS; 2019-07-01)
DX: I48.19 Other persistent atrial fibrillation (principal); I48.3 Typical atrial flutter; I11.0 Hypertensive heart disease with heart failure; I50.22 Chronic systolic (congestive) heart failure; I45.6 Pre-excitation syndrome; K21.9 Gastro-esophageal reflux disease without esophagitis; Z79.01 Long term (current) use of anticoagulants; Z79.899 Other long term (current) drug therapy; Z87.891 Personal history of nicotine dependence
CPT/HCPCS: 76942; 85347; 93613; 93622; 93623; 93656; 93662; C1731; C1759; C1769; G0378; J1100; J1200; J1644; J2405; J2704; J2720; J3010